=== PATIENT | male | born 1945 | race African-American/Black ===

== ENCOUNTER 2020-08-06 16:54 | Emergency (ER) | payer MEDICARE, OTHER ==
[~2020-08-06] VITALS: Ht 182.9 cm; Wt 76.8 kg
--- NOTE | 2020-08-06 17:16 | PHYS DOC ---
Past History Past Medical History: Diabetes, Hypertension, Renal Disease, Other Additional Past Medical Histor: osteomyelitis,osteosarcoma (PAUL JACOB FINAL ASSEMBLER) Alcohol Use: None (PAUL JACOB APRN) Adult General Chief Complaint Chief Complaint: WEAKNESS/GENERALIZED HPI HPI Patient is a 75-year-old male who presents to the emergency department today via EMS with chief complaints "I am feeling bad ". Patient also states that his right lower leg is hurting more than normal. EMS reports that patient was sent by his daughter and his home health nurse who feel that he has some altered mental status specifically "he acts like he just woke up from sleep ". Patient is unable to stand and ambulate normally. Patient states that he feels dizzy when he is in the standing position. Patient's daughter reports that he has a history of type 2 diabetes, hypertension, hypercholesterol, glaucoma, renal arterial stents with renal disease, chronic osteomyelitis of the right tib-fib where he is treated with daily doxycycline p.o. twice daily 100 mg. Patient and patient's daughter denies the patient having any allergies to medications. Patient denies chest pain, denies shortness of breath, denies abdominal pains, denies nausea, vomiting, or diarrhea constipation or blood in his stools. Patient denies swelling of his extremities, denies skin rashes, denies vision changes, denies chest congestion, denies nasal congestion. Patient denies recent fever, chills, cough. (PAUL JACOB APRN) Review of Systems Review of Systems 14 body systems of review of systems have been reviewed. See HPI for pertinent positives and negative responses, otherwise all other systems are negative, nonpertinent or noncontributory. (PAUL JACOB FINAL ASSEMBLER) Current Medications Current Medications Amlodipine 10 mg daily, vitamin C 500 mg daily, 81 mg aspirin daily, Cosopt PF 2-0.5% 1 drop each eye twice daily, Zilactin 0.005% 1 drop both eyes nightly, lisinopril 40 mg daily, Glucophage 500 mg 2 tablets twice daily, multivitamin capsule daily, Protonix 40 mg daily, [id number] 0.02-0.005% 1 drop left eye nightly, Ozempic 1 mg 0.5 mils weekly, thiamine 100 mg daily, doxycycline 100 mg twice daily, Jardiance 10 mg daily, Zetia 10 mg daily, folic acid 1000 mcg daily, Neurontin 600 mg 3 times daily, hydrochlorothiazide 12.5 mg daily, [place] 5-325 mg daily, (PAUL JACOB APRN) Allergies Allergies Allergies Coded Allergies Type Severity Reaction Last Updated Verified No Known Drug Allergies 08/06/20 No (PAUL JACOB APRN) Physical Exam Physical Exam Constitutional: Well developed, well nourished, no acute distress, non-toxic appearance. HENT: Normocephalic, atraumatic, bilateral external ears normal, oropharynx moist, no oral exudates, nose normal. Eyes: PERRLA, EOMI, conjunctiva normal, no discharge. Neck: Normal range of motion, no tenderness, supple, no stridor. Cardiovascular:Heart rate regular rhythm, no murmur, heart sounds S1-S2 auscultation Lungs & Thorax: Bilateral breath sounds clear to auscultation, diminished left upper lobe, no adventitious lung sounds appreciated. Abdomen: Bowel sounds normal, soft, no tenderness, no masses, no pulsatile masses. Skin: Warm, dry, no erythema, no rash. Open stage IV ulcer to right lower extremity anterior tib-fib, dressed from home by home health nurse, dressing removed revealed stage IV ulcer without infectious process noted, tibia bone exposed. Ulcer redressed. Back: No tenderness, no CVA tenderness. Extremities: No tenderness, no cyanosis, no clubbing, ROM intact, no edema. Stage IV ulcer to right lower extremity related to chronic osteomyelitis that was diagnosed in the year 1999, distal cap refill less than 2 seconds, 2+ posterior tibial/dorsalis pedis pulses. Neurologic: Alert and oriented X 3, normal motor function, normal sensory function, no focal deficits noted. Psychologic: Affect normal, judgement normal, mood normal. (PAUL JACOB APRN) Current Patient Data Vital Signs Vital Signs Date Time Temp Pulse Resp B/P (MAP) Pulse Ox O2 Delivery O2 Flow Rate FiO2 08/06/20 17:04 98.3 89 18 99/59 (72) 96 Room Air Lab Results Laboratory Tests Test 08/06/20 17:27 08/06/20 20:54 08/06/20 20:55 White Blood Count 24.1 x10^3/uL Red Blood Count 4.11 x10^6/uL Hemoglobin 11.7 g/dL Hematocrit 36.5 % Mean Corpuscular Volume 89 fL Mean Corpuscular Hemoglobin 28 pg Mean Corpuscular Hemoglobin Concent 32 g/dL Red Cell Distribution Width 15.0 % Platelet Count 257 x10^3/uL Neutrophils (%) (Auto) 40 % Lymphocytes (%) (Auto) 59 % Monocytes (%) (Auto) 1 % Eosinophils (%) (Auto) 0 % Basophils (%) (Auto) 0 % Neutrophils # (Auto) 9.6 x10^3uL Lymphocytes # (Auto) 14.1 x10^3/uL Monocytes # (Auto) 0.3 x10^3/uL Eosinophils # (Auto) 0.1 x10^3/uL Basophils # (Auto) 0.0 x10^3/uL Segmented Neutrophils % 44 % Lymphocytes % 43 % Atypical Lymphocytes % (Manual) 13 % Smudge Cells Present Platelet Estimate Adequate Sodium Level 140 mmol/L Potassium Level 3.5 mmol/L Chloride Level 102 mmol/L Carbon Dioxide Level 29 mmol/L Anion Gap 9 Blood Urea Nitrogen 21 mg/dL Creatinine 1.6 mg/dL Estimated GFR (Cockcroft-Gault) 51.2 BUN/Creatinine Ratio 13 Glucose Level 153 mg/dL Lactic Acid Level 2.3 mmol/L 1.8 mmol/L Calcium Level 9.2 mg/dL Phosphorus Level 4.6 mg/dL Magnesium Level 1.7 mg/dL Total Bilirubin 0.7 mg/dL Aspartate Amino Transf (AST/SGOT) 25 U/L Alanine Aminotransferase (ALT/SGPT) 16 U/L Alkaline Phosphatase 86 U/L Troponin I Quantitative < 0.017 ng/mL Total Protein 6.6 g/dL Albumin 2.6 g/dL Albumin/Globulin Ratio 0.7 Urine Collection Type Unknown Urine Color Yellow Urine Clarity Clear Urine pH 5.0 Urine Specific [place] 1.015 Urine Protein Neg Urine Glucose (UA) >=1000 mg/dL Urine Ketones (Stick) Neg mg/dL Urine Blood Neg Urine Nitrite Neg Urine Bilirubin Neg Urine Urobilinogen Dipstick 0.2 mg/dL Urine Leukocyte Esterase Neg Urine RBC 0 /HPF Urine WBC 0 /HPF Urine Squamous Epithelial Cells None /LPF Urine Bacteria 0 /HPF Current Medications Medications (Trade) Dose Ordered Sig/Emma Route PRN Reason Start Time Stop Time Status Last Admin Dose Admin Sodium Chloride 500 ml @ 0 mls/hr 1X ONCE IV 08/06/20 17:30 08/06/20 17:31 DC 08/06/20 18:34 Ciprofloxacin Lactate 200 ml @ 200 mls/hr 1X ONCE IV 08/06/20 21:30 08/06/20 22:29 DC (PAUL JACOB APRN) EKG EKG EKG performed at 1745 by house respiratory therapy staff, shows a normal sinus rhythm without ectopy heart rate 85 bpm, MT interval 0.152, QTc interval 0.417, no acute STEMI, no ACS, no acute ischemia appreciated, EKG interpreted by ED attending physician Dr. Nolasco. (PAUL JACOB APRN) Radiology/Procedures Radiology/Procedures []SEX: MEXAM ACCESSION#: [id number] STATUS: REG ER ORD. PHYSICIAN: PAUL JACOB APRN REASON: ALTERED MENTAL STATUS, weakness PROCEDURE: CT HEAD WO CONTRAST CT head without contrast dated 08/06/2020. No comparison available. Clinical data indication: Altered mental status. TECHNIQUE: Contiguous axial imaging the head was performed from skull base to vertex. No contrast administered. One or more of the following individualized dose reduction techniques were utilized for this examination: 1. Automated exposure control 2. Adjustment of the mA and/or kV according to patient size 3. Use of iterative reconstruction technique. FINDINGS: Ventricles and sulci are mildly prominent for age. No midline shift or mass effect. Moderate patchy low density in the deep/subcortical periventricular white matter. No hemorrhage or extra-axial collection. Posterior fossa and brainstem unremarkable. There are remote lacunar infarcts of the right basal ganglia and left thalamus. Visualized paranasal sinuses and mastoid air cells are clear. No apparent calvarial abnormality. IMPRESSION: 1. No evidence of acute intracranial hemorrhage or mass. 2. Moderate chronic small vessel ischemic changes and atrophy. Electronically signed by: Paul Leon MD (08/06/2020 10:00 PM) [id number] DICTATED AND SIGNED BY: PAUL LEON MD DATE: 08/06/202158 CC: PAUL JACOB APRN; EMERGENCY,DEPARTMENT; ABY RAIN MD ~MTH0 0 SEX: M EXAM STATUS: REG ER ORD. PHYSICIAN: PAUL JACOB APRN REASON: LUNG MASS LEFT, weakness, short of air PROCEDURE: CT CHEST WO CONTRAST CT chest without contrast dated 08/06/2020. Comparison made to chest x-ray dated same day. Clinical data indication: Left lung mass. TECHNIQUE: Contiguous axial imaging the chest performed without the administration of intravenous contrast. One or more of the following individualized dose reduction techniques were utilized for this examination: 1. Automated exposure control 2. Adjustment of the mA and/or kV according to patient size 3. Use of iterative reconstruction technique FINDINGS: Again noted is a large soft tissue mass involving the suprahilar left upper lobe. This measures 4.2 x 7.9 x 6.8 cm. There is high-grade narrowing or occlusion of the anterior segment left upper lobe airway and apical posterior segmental airways. There is some soft tissue fullness at the left hilum suggesting adenopathy. There is also some soft tissue fullness at the right hilum which could be related to enlarged lymph node, however this is not well evaluated in the absence of contrast material. Nonpathologic enlarged right paratracheal and left paratracheal lymph nodes. The central airways are otherwise patent. Noncalcified subpleural nodule in the left upper lobe laterally on image 50 measures about 3 mm. Mild emphysema. There is a vague groundglass nodular density in the right lower lobe anteriorly on image 51 that measures about 1.2 cm, indeterminate, with some central cavitatio n. No pleural effusion. No pneumothorax. The heart size is within normal limits. No pericardial effusion. Extensive coronary calcifications. Thyroid gland is unremarkable. There are borderline enlarged bilateral axillary lymph nodes, nonspecific. There are also mildly enlarged supraclavicular lymph nodes on the left. Images of the upper abdomen are unremarkable. Small supraumbilical ventral hernia containing only fat. No acute bony abnormality. Multilevel spondylosis. IMPRESSION: 1. Large soft tissue mass at the suprahilar left upper lobe, most consistent with primary bronchogenic malignancy. There is resultant high-grade narrowing or occlusion of the left upper lobe airways. 2. Mild mediastinal, bilateral hilar and left supraclavicular lymphadenopathy, nonspecific. This could be reactive or neoplastic. PET CT could better evaluate. 3. There is a small noncalcified pulmonary nodule in the left upper lobe, nonspecific. There is also a vague groundglass opacity in the right lower lobe. Follow-up imaging to ensure stability/resolution. 4. Extensive coronary artery calcifications. 5. Small supraumbilical ventral hernia containing only fat. Electronically signed by: Paul Leon MD (08/06/2020 10:07 PM) [id number] DICTATED AND SIGNED BY: PAUL LEON MD DATE: 08/06/202200 CC: PAUL JACOB APRN; EMERGENCY,DEPARTMENT; ABY RAIN MD ~MTH0 0 SEX: M EXAM STATUS: REG ER ORD. PHYSICIAN: PAUL JACOB APRN REASON: WEAKNESS PROCEDURE: PORTABLE CHEST 1V INDICATION: Reason: WEAKNESS / Spl. Instructions: / History: COMPARISON: None. FINDINGS: Single view of chest obtained. Large masslike structure within the left upper hilar region measuring appr oximately 7-8 cm. There is some fullness in the right paratracheal stripe. Degenerative changes the spine. IMPRESSION: * Large masslike structure in the left perihilar and hilar region. This could be secondary to causes such as lung neoplasm although a portion of this could also be secondary to a region of consolidation from atelectasis or infiltrate. CT of the chest with contrast could BE obtained to further evaluate. Report called to the ER at 6:03 PM on date of exam Electronically signed by: Tushar Nuñez MD (08/06/2020 6:06 PM) [id number] DICTATED AND SIGNED BY: TUSHAR NUÑEZ MD DATE: 08/06/201800 CC: PAUL JACOB APRN; EMERGENCY,DEPARTMENT; ABY RAIN MD ~MTH0 0 (PAUL JACOB APRN) Heart Score Risk Factors: Risk Factors: DM, Current or recent (<one month) smoker, HTN, HLP, family history of CAD, obesity. Risk Scores: Risk Factors: DM, Current or recent (<one month) smoker, HTN, HLP, family history of CAD, obesity. (PAUL JACOB APRN) Course & Med Decision Making Course & Med Decision Making Pertinent Labs and Imaging studies reviewed. (See chart for details) 75-year-old male presents emergency department complaining that he feels bad, vital signs reviewed, physical examination revealed stage IV pressure ulcer, patient states he is followed closely by wound care/infectious disease. Related to patient's chief complaint, and ED work-up was initiated. EKG, troponin I, CBC, CMP, magnesium, phosphorus, lactic acid. Chest x-ray, related to patient's slight hypotension of 99/55 initially when arrived to ER, a 500 cc normal saline bolus was initiated, patient has not been to this facility in the past, patient states he has "some sort of renal disease ". EKG, troponin I negative for cardiac dyscrasias, chest x-ray revealed a mass in the left upper lung, patient's white count elevated 24,100 leukocytosis with neutrophilia, patient's creatinine 1.6, patient's lactic acid 2.3. After patient's 500 cc normal saline bolus, orthostatics were performed by ED nursing staff, patient's blood pressure and pulse did not reveal orthostasis however patient did complain of dizziness when he came to a standing position. Related to patient's chest x-ray, leukocytosis, altered mental status, CT head and chest without contrast was ordered. Discussed findings with patient and recommended patient be admitted to hospital, patient states that if he was to be admitted he would want to go to [facility] as this has been has hospital for the last 11 years and is closely followed by several physicians in that hospital. Contacted [facility] transfer center and discussed patient case with transferring physician Dr. Cassidy who agreed to take patient under transfer with the information discussed with him, however related to patient's CT chest, Dr. Cassidy recommended that the patient be transferred to [facility] for higher level of care. Discussed this with patient who was amenable to transfer to [facility]. ED nurse to [facility] floor nurse report given, patient transferred to [facility] via EMS. (PAUL JACOB APRN) Dragon Disclaimer Dragon Disclaimer This electronic medical record was generated, in whole or in part, using a voice recognition dictation system. (PAUL JACOB APRN) Departure Departure: Impression: Primary Impression: Lung mass Additional Impressions: Leukocytosis Elevated lactic acid level Chronic osteomyelitis Stage IV decubitus ulcer Altered mental status Disposition: 02 DC/TRF OTHER SHORT TERM HOS (Transfer to [facility], accepting transfer physician Dr. Cassidy) Condition: STABLE Dragon Disclaimer This chart was dictated in whole or in part using Voice Recognition software in a busy, high-work load, and often noisy Emergency Department environment. It may contain unintended and wholly unrecognized errors or omissions. (NAEL NOLASCO MD) Attending Signature Attending Signature I have participated in the care of this patient and I have reviewed and agree with all pertinent clinical information above including history, exam, and recommendations. (NAEL NOLASCO MD) Problem Qualifiers Additional Impressions: Leukocytosis Leukocytosis type: lymphocytosis Qualified Codes: D72.820 - Lymphocytosis (symptomatic) Stage IV decubitus ulcer Pressure injury location: other site Qualified Codes: L89.894 - Pressure ulcer of other site, stage 4 Altered mental status Altered mental status type: unspecified Qualified Codes: R41.82 - Altered mental status, unspecified PAUL JACOB APRN Aug 06, 2020 17:16 NAEL NOLASCO MD Aug 07, 2020 09:27
[2020-08-06] MEDS ORDERED: IV NORMAL SALINE 500ML 500 ML IV ONE (17:30)
[2020-08-06 17:51] LABS: BASO % 0 % (0-3); EOS # 0.1 x10^3/uL (0.0-0.7); EOS % 0 % (0-3); HEMATOCRIT 36.5 % (39.0-53.0); HEMOGLOBIN 11.7 g/dL (13.0-17.5); LYMPH # 14.1 x10^3/uL (1.0-4.8); LYMPH % 59 % (24-48); MEAN CORPUSCULAR HEMOGLOBIN 28 pg (25-35); MEAN CORPUSCULAR HGB CONC 32 g/dL (31-37); MEAN CORPUSCULAR VOLUME 89 fL (79-100); MONO # 0.3 x10^3/uL (0.0-1.1); MONO % 1 % (0-9); NEUT # 9.6 x10^3uL (1.8-7.7); NEUT % 40 % (31-73); PLATELET COUNT 257 x10^3/uL (140-400); RED BLOOD COUNT 4.11 x10^6/uL (4.30-5.70); WHITE BLOOD COUNT 24.1 x10^3/uL (4.0-11.0)
--- NOTE | 2020-08-06 18:08 | RAD ---
INDICATION: Reason: WEAKNESS / Spl. Instructions: / History: COMPARISON: None. FINDINGS: Single view of chest obtained. Large masslike structure within the left upper hilar region measuring approximately 7-8 cm. There is some fullness in the right paratracheal stripe. Degenerative changes the spine. IMPRESSION: * Large masslike structure in the left perihilar and hilar region. This could be secondary to causes such as lung neoplasm although a portion of this could also be secondary to a region of consolidatio n from atelectasis or infiltrate. CT of the chest with contrast could BE obtained to further evaluate . Report called to the ER at 6:03 PM on date of exam Electronically signed by: Leno Nuñez MD (08/06/2020 6:06 PM) [id number]
--- NOTE | 2020-08-06 18:11 | EKG ---
[address] [address] Test Date: 2020-08-06 Test Time: 17:45:28 Pat Name: DEBI LÓPEZ Department: Room: Gender: M Culinary Assistant: EDITH : 1945 Requested By: RADHA JACOB Order Number: [id number] Reading MD: Measurements Intervals May Rate: 85 P: 56 SD: 152 QRS: 31 QRSD: 84 T: 43 QT: 350 QTc: 417 Interpretive Statements SINUS RHYTHM OTHERWISE NORMAL ECG RI6.02 No previous ECG available for comparison
[2020-08-06 18:15] LABS: CALCIUM 9.2 mg/dL (8.5-10.1); CREATININE 1.6 mg/dL (0.7-1.3); GFR 51.2; POTASSIUM 3.5 mmol/L (3.5-5.1)
[2020-08-06 18:20] LABS: ALBUMIN 2.6 g/dL (3.4-5.0); ALBUMIN/GLOBULIN RATIO 0.7 (1.0-1.7); MAGNESIUM 1.7 mg/dL (1.8-2.4); PHOSPHORUS 4.6 mg/dL (2.6-4.7); TOTAL BILIRUBIN 0.7 mg/dL (0.2-1.0); TOTAL PROTEIN 6.6 g/dL (6.4-8.2)
[2020-08-06 18:27] LABS: % ATYL 13 % (0-0); % LYMPHS 43 % (24-48); % SEGS 44 % (35-66)
[2020-08-06 18:28] LABS: PLT ESTIMATE ADEQUATE (ADEQUATE); SMUDGE CELLS PRESENT
[2020-08-06] MEDS ORDERED: CIPROFLOXACIN 400MG PREMIX 200 ML IV ONE (21:30)
--- NOTE | 2020-08-06 22:03 | RAD ---
CT head without contrast dated 08/06/2020. No comparison available. Clinical data indication: Altered mental status. TECHNIQUE: Contiguous axial imaging the head was performed from skull base to vertex. No contrast administered. One or more of the following individualized dose reduction techniques were utilized for this examinat ion: 1. Automated exposure control 2. Adjustment of the mA and/or kV according to patient size 3. Use of iterative reconstruction technique. FINDINGS: Ventricles and sulci are mildly prominent for age. No midline shift or mass effect. Moderate patchy l ow density in the deep/subcortical periventricular white matter. No hemorrhage or extra-axial collect ion. Posterior fossa and brainstem unremarkable. There are remote lacunar infarcts of the right basal ganglia and left thalamus. Visualized paranasal sinuses and mastoid air cells are clear. No apparent calvarial abnormality. IMPRESSION: 1. No evidence of acute intracranial hemorrhage or mass. 2. Moderate chronic small vessel ischemic changes and atrophy. Electronically signed by: Paul Rodriguez MD (08/06/2020 10:00 PM) [id number]
--- NOTE | 2020-08-06 22:09 | RAD ---
CT chest without contrast dated 08/06/2020. Comparison made to chest x-ray dated same day. Clinical data indication: Left lung mass. TECHNIQUE: Contiguous axial imaging the chest performed without the administration of intravenous contrast. One or more of the following individualized dose reduction techniques were utilized for this examinat ion: 1. Automated exposure control 2. Adjustment of the mA and/or kV according to patient size 3. Use of iterative reconstruction technique FINDINGS: Again noted is a large soft tissue mass involving the suprahilar left upper lobe. This measures 4.2 x 7.9 x 6.8 cm. There is high-grade narrowing or occlusion of the anterior segment left upper lobe air way and apical posterior segmental airways. There is some soft tissue fullness at the left hilum sugg esting adenopathy. There is also some soft tissue fullness at the right hilum which could be related to enlarged lymph node, however this is not well evaluated in the absence of contrast material. Nonpa thologic enlarged right paratracheal and left paratracheal lymph nodes. The central airways are otherwise patent. Noncalcified subpleural nodule in the left upper lobe later ally on image 50 measures about 3 mm. Mild emphysema. There is a vague groundglass nodular density in the right lower lobe anteriorly on image 51 that measures about 1.2 cm, indeterminate, with some annie tral cavitation. No pleural effusion. No pneumothorax. The heart size is within normal limits. No pericardial effusion. Extensive coronary calcifications. T hyroid gland is unremarkable. There are borderline enlarged bilateral axillary lymph nodes, nonspecif ic. There are also mildly enlarged supraclavicular lymph nodes on the left. Images of the upper abdomen are unremarkable. Small supraumbilical ventral hernia containing only fat . No acute bony abnormality. Multilevel spondylosis. IMPRESSION: 1. Large soft tissue mass at the suprahilar left upper lobe, most consistent with primary bronchogeni c malignancy. There is resultant high-grade narrowing or occlusion of the left upper lobe airways. 2. Mild mediastinal, bilateral hilar and left supraclavicular lymphadenopathy, nonspecific. This coul d be reactive or neoplastic. PET CT could better evaluate. 3. There is a small noncalcified pulmonary nodule in the left upper lobe, nonspecific. There is also a vague groundglass opacity in the right lower lobe. Follow-up imaging to ensure stability/resolution . 4. Extensive coronary artery calcifications. 5. Small supraumbilical ventral hernia containing only fat. Electronically signed by: Paul Rodriguez MD (08/06/2020 10:07 PM) [id number]
[2020-08-06 22:21] LABS: BACTERIA,URINE 0 /HPF (0-FEW); BILIRUBIN,URINE NEG (NEG); CLARITY,URINE CLEAR; COLOR,URINE YELLOW; GLUCOSE,URINE >=1000 mg/dL (NEG); NITRITE,URINE NEG (NEG); RBC,URINE 0 /HPF (0-2); UROBILINOGEN,URINE 0.2 mg/dL (0.2 mg/dL); WBC,URINE 0 /HPF (0-4)
[2020-08-06 23:00] VITALS: BP 108/64
== END 2020-08-06 23:30 | disposition short-term general hospital (02) ==
LOC: ER 16:54
DX: M86.671 Other chronic osteomyelitis, right ankle and foot (principal); L89.514 Pressure ulcer of right ankle, stage 4; R91.8 Other nonspecific abnormal finding of lung field; D72.829 Elevated white blood cell count, unspecified; R41.82 Altered mental status, unspecified; R79.89 Other specified abnormal findings of blood chemistry; E11.9 Type 2 diabetes mellitus without complications; I10 Essential (primary) hypertension; N19 Unspecified kidney failure
CPT/HCPCS: 36415; 70450; 71045; 71250; 80053; 81001; 83605; 83735; 84100; 84484; 85007; 85025; 87040; 87205; 93005; 96361; 96365; 99285; J0744; J7040

== ENCOUNTER 2021-01-15 11:16 | Emergency (ER) | payer MEDICARE, OTHER ==
[~2021-01-15] VITALS: Ht 182.9 cm; Wt 76.8 kg
--- NOTE | 2021-01-15 12:04 | PHYS DOC ---
Past History Past Medical History: Diabetes, Hypertension, Renal Disease, Other Additional Past Medical Histor: osteomyelitis,osteosarcoma Alcohol Use: None Adult General Chief Complaint Chief Complaint: FLANK PAIN HPI HPI Patient is a 75-year-old presenting for generalized right flank pain. Has history of lung cancer with mets for which he sees [facility], he is currently undergoing some type of chemo and/or radiation treatment but is unsure exactly what he is on. Denies any previous right sided chest surgeries or abdominal surgeries. Reports he has had generalized right flank pain that is been there approximately 4 days without any inciting trauma, ingestion or exposure. States that it involves his chest wall and side. No fever, ripping or tearing sensation in chest, shortness of breath past baseline, dysuria or other urinary symptoms. Reports he does not think he is constipated Review of Systems Review of Systems Fourteen body systems of review of systems have been reviewed. See HPI for pertinent positives and negative responses, other [place] all other systems are negative, non-pertinent or non-contributory Allergies Allergies Allergies Coded Allergies Type Severity Reaction Last Updated Verified No Known Drug Allergies 08/06/20 No Physical Exam Physical Exam Constitutional: Well developed, well nourished, no acute distress, non-toxic appearance. HENT: Normocephalic, atraumatic, bilateral external ears normal, oropharynx moist, no oral exudates, nose normal. Eyes: PERRLA, EOMI, conjunctiva normal, no discharge. Neck: Normal range of motion, no tenderness, supple, no stridor. Cardiovascular: Heart rate regular, sinus rhythm, no murmurs rubs or gallops Lungs & Thorax: Decreased breath sounds to the left lower lobe, crackles present to right lower lobe, no respiratory distress Abdomen: Bowel sounds normal, soft, no tenderness, no guarding or rebound, no masses, no pulsatile masses. Nonsurgical abdomen, no peritoneal signs Skin: Warm, dry, no erythema, no rash. Back: No tenderness, no CVA tenderness. Extremities: No tenderness, no cyanosis, no clubbing, ROM intact, no edema. Neurologic: Alert and oriented X 3, grossly normal motor & sensory function, no focal deficits noted. Psychologic: Affect normal, judgement normal, mood normal. Current Patient Data Vital Signs Vital Signs Date Time Temp Pulse Resp B/P (MAP) Pulse Ox O2 Delivery O2 Flow Rate FiO2 01/15/21 11:30 98.8 94 22 124/73 98 Room Air Vital Signs Date Time Temp Pulse Resp B/P (MAP) Pulse Ox O2 Delivery O2 Flow Rate FiO2 01/15/21 15:46 98 18 147/89 (108) 98 Room Air 01/15/21 11:30 98.8 Lab Results Current Medications Medications (Trade) Dose Ordered Sig/Emma Route PRN Reason Start Time Stop Time Status Last Admin Dose Admin Fentanyl Citrate (Fentanyl 2ml Vial) 50 mcg 1X ONCE IVP 01/15/21 12:15 01/15/21 12:31 DC 01/15/21 12:54 Iohexol (Omnipaque 300 Mg/ml) 75 ml 1X ONCE IV 01/15/21 12:15 01/15/21 12:31 DC Potassium Chloride (Klor-Con) 40 meq 1X ONCE PO 01/15/21 14:00 01/15/21 14:01 DC 01/15/21 14:19 EKG EKG EKG ordered and interpreted by myself at 1231 hrs. as sinus rhythm at 71 bpm, unremarkable intervals, no axis deviation, no acute ischemic findings, no STEMI Radiology/Procedures Radiology/Procedures EXAMINATION: XR CHEST 1V CLINICAL HISTORY: Right flank pain EXAM DATE/TIME: 01/15/2021 1:20 PM COMPARISON: 08/06/2020 FINDINGS: Lines, Tubes, and Devices: None. Cardiomediastinal Silhouette: Heart size at upper limits of normal. Lungs and Pleura: Postsurgical changes in the left hemithorax with volume loss, related to partial pneumonectomy. No definite focal airspace consolidation or pleural effusion. Bones and Soft Tissues: Degenerative changes of the thoracic spine. IMPRESSION: No evidence of acute cardiopulmonary abnormality. Postoperative changes in the left hemithorax as described. Electronically signed by: Pipo Mendoza DO (01/15/2021 1:55 PM) [facility] //////////////////// CT chest abdomen pelvis with contrast dated 01/15/2021. Comparison made to 08/06/2020. CLINICAL INDICATION: Chest pain. TECHNIQUE: Contiguous axial imaging the chest abdomen pelvis performed following the intravenous administration of 75 cc Omnipaque 300. One or more of the following individualized dose reduction techniques were utilized for this examination: 1. Automated exposure control 2. Adjustment of the mA and/or kV according to patient size 3. Use of iterative reconstruction technique FINDINGS: There has been interval left upper lobectomy with resection of previously described left upper lobe mass. There is a suture line along the upper left mediastinum. A low-density nodular focus adjacent to the suture line measures about 3 cm maximum dimension with Hounsfield value of 18. There are couple of borderline enlarged left paratracheal lymph nodes measuring 9 to 10 mm short axis, similar to prior study. There is some pleural thickening at the left apex with mildly enlarged left axillary, left supraclavicular and upper left mediastinal lymph nodes, similar to prior study. Small left pleural effusion. Heart size is upper limits of normal. Coronary artery calcifications. Mildly enlarged right paratracheal and right axillary lymph nodes are unchanged. No definite right hilar adenopathy. There is some soft tissue thickening of the left hilum. Central airways are patent. Lungs are otherwise clear. No parenchymal nodule or mass. There is mild emphysema. Liver is homogeneous. No focal hepatic mass. Spleen is mildly enlarged. Small nodular focus of enhancement in the central spleen measures about 1.3 cm (image 14), indeterminate. Pancreas, adrenal glands and kidneys are unremarkable. Layering hyperdensity in the gallbladder suggesting sludge. No shadowing stone. Unopacified GI tract normal in caliber and contour. No bowel wall thickening. No inflammatory stranding in the mesentery. Appendix normal in caliber. There are mildly enlarged lymph nodes in the retroperitoneum. Pericaval lymph nodes on image 60 measures 1.5 cm short axis. Common iliac lymph node on the left on image 86 measures 10 mm short axis. There is a stent within the right external iliac vein. Atherosclerotic calcifications of the abdominal aorta without evidence of aneurysm. Images of pelvis show moderately enlarged prostate gland. Mild diffuse wall thickening of the urinary bladder. There are enlarged inguinal and iliac chain lymph nodes on the right. A right external iliac chain lymph node measures up to 2 cm short axis. A right inguinal lymph node measures up to 2.1 cm short axis. Small bilateral inguinal hernia containing only fat. There is also a prominent supraumbilical ventral hernia containing only fat. Bone windows show radiolucent focus within the T9 vertebral body, possibly Schmorl's node, unchanged. No additional lytic lesion. Multilevel spondylosis. IMPRESSION: 1. Interval left upper lobectomy with resection of large left upper lobe mass. There is a low-density nodular lesion along the suture line which may be pleural or mediastinal and location, indeterminate. This could represent a postoperative seroma or necrotic lymph node. Follow-up imaging to ensure stability. 2. Mediastinal and bilateral axillary and supra clavicular lymphadenopathy, similar to prior study, nonspecific. Metastatic lymph node spread not excluded. 3. There is also adenopathy in the retroperitoneum, right inguinal region and right iliac chain, indeterminate. This could represent metastatic disease or lymphoma. Correlate clinically. 4. Small left pleural effusion, new from prior study. 5. Mild emphysema. 6. Indeterminate small nodular focus of hyperenhancement within the spleen. 7. Prostatomegaly. Electronically signed by: Paul Rodriguez MD (01/15/2021 2:20 PM) [id number] Heart Score C/O Chest Pain: No HEART Score for Chest Pain: HEART Score for Chest Pain Response (Comments) Value History Slighlty/Non-Suspicious 0 ECG Normal 0 Age > 65 2 Risk Factors >3 Risk Factors or Hx CAD 2 Troponin < Normal Limit 0 Total 4 Risk Factors: Risk Factors: DM, Current or recent (<one month) smoker, HTN, HLP, family history of CAD, obesity. Risk Scores: Risk Factors: DM, Current or recent (<one month) smoker, HTN, HLP, family history of CAD, obesity. Course & Med Decision Making Course & Med Decision Making ABCs unremarkable. I disclosed entirety of ER findings and discussed most likely diagnosis of right-sided torso pain of unknown etiology. I disclosed entirety of visit and no obvious emergent or surgical findings. Patient did report symptomatic improvement with administered IV pain medication. I disclose little indication for further intervention and/or work-up or need for hospital transfer and admission for which patient was agreeable. Joint decision made to discharge with close outpatient follow-up to review ER visit today. Strict return precautions were also discussed at length with good understanding by patient. Patient voiced understanding and agreement with the plan. Patient knows to come back for repeat evaluation if concerning signs or symptoms present prior to outpatient follow-up. Hemodynamically stable, ambulatory and well-appearing at time of disposition. Dragon Disclaimer Dragon Disclaimer This electronic medical record was generated, in whole or in part, using a voice recognition dictation system. Departure Departure: Impression: Primary Impression: Right flank pain Disposition: HOME / SELF CARE / HOMELESS Condition: STABLE Referrals: ABY RAIN MD (PCP) Patient Instructions: Abdominal Pain (Nonspecific) Additional Instructions: You have been evaluated in the Emergency Department today for right-sided flank/abdominal pain. Your evaluation was not suggestive of any emergent condition requiring medical intervention at this time. However, some abdominal problems make take more time to appear. Therefore, it is important for you to watch for any new symptoms or worsening of your current condition. As disclosed, it is pertinent you contact your primary care physician next scheduled business day to review ER visit today and need for close outpatient follow-up for repeat evaluation. If any concerning signs or symptoms present prior to outpatient follow-up please do not hesitate to come back for repeat evaluation Return to the Emergency Department if you experience worsening pain, persistent fevers greater than 100.4, recurrent vomiting, blood in vomit, blood in stool, dark tarry stool, chest pain, difficulty breathing, or any other concerning symptoms. FEDERICO AJ DO Jan 15, 2021 12:04
[2021-01-15] MEDS ORDERED: IOHEXOL 300 MG/ML 75 ML VIAL. IV ONE (12:15)
[2021-01-15 12:50] LABS: BASO % 0 % (0-3); EOS % 0 % (0-3); HEMATOCRIT 28.3 % (39.0-53.0); HEMOGLOBIN 9.2 g/dL (13.0-17.5); LYMPH # 10.9 x10^3/uL (1.0-4.8); LYMPH % 98 % (24-48); MEAN CORPUSCULAR HEMOGLOBIN 29 pg (25-35); MEAN CORPUSCULAR HGB CONC 33 g/dL (31-37); MEAN CORPUSCULAR VOLUME 90 fL (79-100); MONO % 0 % (0-9); NEUT # 0.1 x10^3uL (1.8-7.7); NEUT % 1 % (31-73); PLATELET COUNT 96 x10^3/uL (140-400); RED BLOOD COUNT 3.14 x10^6/uL (4.30-5.70); RED CELL DISTRIBUTION WIDTH 19.4 % (11.5-14.5); WHITE BLOOD COUNT 11.1 x10^3/uL (4.0-11.0)
[2021-01-15 12:58] LABS: CALCIUM 8.5 mg/dL (8.5-10.1); CREATININE 1.4 mg/dL (0.7-1.3); GFR 59.8; POTASSIUM 3.1 mmol/L (3.5-5.1)
[2021-01-15 13:11] LABS: ALBUMIN 2.5 g/dL (3.4-5.0); ALBUMIN/GLOBULIN RATIO 0.6 (1.0-1.7); TOTAL BILIRUBIN 0.4 mg/dL (0.2-1.0); TOTAL PROTEIN 6.4 g/dL (6.4-8.2)
[2021-01-15 13:47] LABS: % ATYL 18 % (0-0); % LYMPHS 82 % (24-48)
[2021-01-15 13:48] LABS: SMUDGE CELLS PRESENT
[2021-01-15 13:49] LABS: OVALOCYTES PRESENT; PLT ESTIMATE DECREASED (ADEQUATE)
--- NOTE | 2021-01-15 13:57 | RAD ---
EXAMINATION: XR CHEST 1V CLINICAL HISTORY: Right flank pain EXAM DATE/TIME: 01/15/2021 1:20 PM COMPARISON: 08/06/2020 FINDINGS: Lines, Tubes, and Devices: None. Cardiomediastinal Silhouette: Heart size at upper limits of normal. Lungs and Pleura: Postsurgical changes in the left hemithorax with volume loss, related to partial pn eumonectomy. No definite focal airspace consolidation or pleural effusion. Bones and Soft Tissues: Degenerative changes of the thoracic spine. IMPRESSION: No evidence of acute cardiopulmonary abnormality. Postoperative changes in the left hemithorax as described. Electronically signed by: Pipo Mendoza DO (01/15/2021 1:55 PM) D[facility]GL[facility]
[2021-01-15] MEDS ORDERED: POTASSIUM CHLORIDE 20 MEQ TABLET.ER. PO ONE (14:00)
--- NOTE | 2021-01-15 14:23 | RAD ---
CT chest abdomen pelvis with contrast dated 01/15/2021. Comparison made to 08/06/2020. CLINICAL INDICATION: Chest pain. TECHNIQUE: Contiguous axial imaging the chest abdomen pelvis performed following the intravenous administration of 75 cc Omnipaque 300. One or more of the following individualized dose reduction techniques were utilized for this examinat ion: 1. Automated exposure control 2. Adjustment of the mA and/or kV according to patient size 3. Use of iterative reconstruction technique FINDINGS: There has been interval left upper lobectomy with resection of previously described left upper lobe m ass. There is a suture line along the upper left mediastinum. A low-density nodular focus adjacent to the suture line measures about 3 cm maximum dimension with Hounsfield value of 18. There are couple of borderline enlarged left paratracheal lymph nodes measuring 9 to 10 mm short axis, similar to prio r study. There is some pleural thickening at the left apex with mildly enlarged left axillary, left s upraclavicular and upper left mediastinal lymph nodes, similar to prior study. Small left pleural eff usion. Heart size is upper limits of normal. Coronary artery calcifications. Mildly enlarged right paratrach eal and right axillary lymph nodes are unchanged. No definite right hilar adenopathy. There is some s oft tissue thickening of the left hilum. Central airways are patent. Lungs are otherwise clear. No parenchymal nodule or mass. There is mild e mphysema. Liver is homogeneous. No focal hepatic mass. Spleen is mildly enlarged. Small nodular focus of enhanc ement in the central spleen measures about 1.3 cm (image 14), indeterminate. Pancreas, adrenal glands and kidneys are unremarkable. Layering hyperdensity in the gallbladder suggesting sludge. No shadowi ng stone. Unopacified GI tract normal in caliber and contour. No bowel wall thickening. No inflammatory strandi ng in the mesentery. Appendix normal in caliber. There are mildly enlarged lymph nodes in the retroperitoneum. Pericaval lymph nodes on image 60 measu res 1.5 cm short axis. Common iliac lymph node on the left on image 86 measures 10 mm short axis. The re is a stent within the right external iliac vein. Atherosclerotic calcifications of the abdominal a brody without evidence of aneurysm. Images of pelvis show moderately enlarged prostate gland. Mild diffuse wall thickening of the urinary bladder. There are enlarged inguinal and iliac chain lymph nodes on the right. A right external holland c chain lymph node measures up to 2 cm short axis. A right inguinal lymph node measures up to 2.1 cm short axis. Small bilateral inguinal hernia containing only fat. There is also a prominent supraumbil ical ventral hernia containing only fat. Bone windows show radiolucent focus within the T9 vertebral body, possibly Schmorl's node, unchanged. No additional lytic lesion. Multilevel spondylosis. IMPRESSION: 1. Interval left upper lobectomy with resection of large left upper lobe mass. There is a low-density nodular lesion along the suture line which may be pleural or mediastinal and location, indeterminate . This could represent a postoperative seroma or necrotic lymph node. Follow-up imaging to ensure sta bility. 2. Mediastinal and bilateral axillary and supra clavicular lymphadenopathy, similar to prior study, n onspecific. Metastatic lymph node spread not excluded. 3. There is also adenopathy in the retroperitoneum, right inguinal region and right iliac chain, inde terminate. This could represent metastatic disease or lymphoma. Correlate clinically. 4. Small left pleural effusion, new from prior study. 5. Mild emphysema. 6. Indeterminate small nodular focus of hyperenhancement within the spleen. 7. Prostatomegaly. Electronically signed by: Paul Rodriguez MD (01/15/2021 2:20 PM) [id number]
[2021-01-15 14:55] LABS: BILIRUBIN,URINE NEG (NEG); CLARITY,URINE CLEAR; COLOR,URINE YELLOW; GLUCOSE,URINE NEG (NEG)
[2021-01-15 14:56] LABS: AMORPHOUS SEDIMENT,UR PRESENT /HPF; BACTERIA,URINE FEW /HPF (0-FEW); HYALINE CASTS, URINE OCC /HPF; NITRITE,URINE NEG (NEG); RBC,URINE 0 /HPF (0-2); SQUAMOUS EPITHELIAL CELL,UR FEW /LPF; WBC,URINE 0 /HPF (0-4)
[2021-01-15 15:46] VITALS: BP 147/89
--- NOTE | 2021-01-16 06:29 | EKG ---
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
== END 2021-01-15 15:50 | disposition home or self-care (01) ==
LOC: ER 11:16
DX: R10.84 Generalized abdominal pain (principal); R59.0 Localized enlarged lymph nodes; E11.9 Type 2 diabetes mellitus without complications; I10 Essential (primary) hypertension; Z85.118 Personal history of other malignant neoplasm of bronchus and lung
CPT/HCPCS: 36415; 71045; 71260; 74177; 80053; 81001; 83880; 84484; 85007; 85025; 93005; 96374; 99285; J3010

== ENCOUNTER 2021-02-22 16:22 | Inpatient (IN) | payer MEDICARE, OTHER ==
[~2021-02-22] VITALS: Ht 182.9 cm; Wt 69.4 kg
--- NOTE | 2021-02-22 17:05 | EKG ---
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
--- NOTE | 2021-02-22 17:41 | RAD ---
Exam: Chest 2 views INDICATION: Cough TECHNIQUE: Frontal and lateral views the chest Comparisons: 01/15/2021 FINDINGS: The cardiomediastinal silhouette and pulmonary vessels are within normal limits. Persistent left suprahilar opacity. Lungs are otherwise clear. IMPRESSION: No acute pulmonary process. Electronically signed by: Agus Carvajal MD (02/22/2021 5:39 PM) MARINA
[2021-02-22 17:48] LABS: BASO % 0 % (0-3); EOS % 1 % (0-3); LYMPH # 4.5 x10^3/uL (1.0-4.8); LYMPH % 95 % (24-48); MEAN CORPUSCULAR HEMOGLOBIN 33 pg (25-35); MEAN CORPUSCULAR HGB CONC 33 g/dL (31-37); MEAN CORPUSCULAR VOLUME 98 fL (79-100); MONO % 0 % (0-9); NEUT # 0.2 x10^3uL (1.8-7.7); NEUT % 4 % (31-73); PLATELET COUNT 55 x10^3/uL (140-400); RED BLOOD COUNT 1.97 x10^6/uL (4.30-5.70); RED CELL DISTRIBUTION WIDTH 20.2 % (11.5-14.5); WHITE BLOOD COUNT 4.8 x10^3/uL (4.0-11.0)
[2021-02-22 17:51] LABS: HEMATOCRIT 19.4 % (39.0-53.0); HEMOGLOBIN 6.5 g/dL (13.0-17.5)
--- NOTE | 2021-02-22 17:59 | PHYS DOC ---
Past History Past Medical History: Diabetes, Hypertension, Renal Disease, Other Additional Past Medical Histor: osteomyelitis,osteosarcoma, AFIB, STAGE 3 LUNG CA, CLL (ALFREDO CARO MD) Past Surgical History: Other Additional Past Surgical Histo: Left lobectomy (ALFREDO CARO MD) Alcohol Use: None (ALFREDO CARO MD) General Adult EDM: Chief Complaint: MULTIPLE COMPLAINTS HPI: HPI: Patient is a 75-year-old male brought in by daughter for fatigue, worsening chronic osteomyelitis of right lower leg, and concern his lungs are "wet" per home health nurse. Patient has been coughing which is productive of frothy sputum. History was provided by daughter. Has a history of lung cancer status post lobectomy and 4 rounds of chemotherapy. No known metastasis of lung cancer. (ALFREDO CARO MD) Review of Systems: Review of Systems: All other systems within normal limits except for as noted in the HPI (ALFREDO CARO MD) Allergies: Allergies: Allergies Coded Allergies Type Severity Reaction Last Updated Verified No Known Drug Allergies 08/06/20 No (ALFREDO CARO MD) Physical Exam: PE: Constitutional: Well developed, well nourished, no acute distress, non-toxic appearance. [] HENT: Normocephalic, atraumatic, bilateral external ears normal, nose normal. [] Eyes: PERRLA, conjunctiva normal, no discharge. [] Neck: No rigidity, supple, no stridor. [] Cardiovascular: Regular rate and rhythm, brisk cap refill [] Lungs & Thorax: Non labored symmetric respirations, no tachypnea or respiratory distress [] Abdomen: Soft, nondistended. Skin: Warm, dry, no erythema, no rash. [Darkening of skin to right lower leg] Back: Unremarkable Extremities: No deformities, range of motion grossly intact, no lower extremity edema [] Neurologic: Alert and oriented X 3, no focal deficits noted. [] Psychologic: Affect normal, judgement normal, mood normal. [] (ALFREDO CARO MD) Current Patient Data: Labs: Laboratory Tests Test 02/22/21 17:10 White Blood Count 4.8 x10^3/uL (4.0-11.0) Red Blood Count 1.97 x10^6/uL (4.30-5.70) L Hemoglobin 6.5 g/dL (13.0-17.5) *L Hematocrit 19.4 % (39.0-53.0) *L Mean Corpuscular Volume 98 fL (79-100) Mean Corpuscular Hemoglobin 33 pg (25-35) Mean Corpuscular Hemoglobin Concent 33 g/dL (31-37) Red Cell Distribution Width 20.2 % (11.5-14.5) H Platelet Count 55 x10^3/uL (140-400) L Neutrophils (%) (Auto) 4 % (31-73) L Lymphocytes (%) (Auto) 95 % (24-48) H Monocytes (%) (Auto) 0 % (0-9) Eosinophils (%) (Auto) 1 % (0-3) Basophils (%) (Auto) 0 % (0-3) Neutrophils # (Auto) 0.2 x10^3uL (1.8-7.7) L Lymphocytes # (Auto) 4.5 x10^3/uL (1.0-4.8) Monocytes # (Auto) 0.0 x10^3/uL (0.0-1.1) Eosinophils # (Auto) 0.0 x10^3/uL (0.0-0.7) Basophils # (Auto) 0.0 x10^3/uL (0.0-0.2) Platelet Estimate Pending Erythrocyte Sedimentation Rate Pending Vital Signs: Vital Signs Date Time Temp Pulse Resp B/P (MAP) Pulse Ox O2 Delivery O2 Flow Rate FiO2 02/22/21 16:25 98.5 80 28 146/66 98 Room Air (ALRFEDO CARO MD) EKG: EKG: Sinus rhythm, heart rate 74 bpm, normal axis, no ST elevation or depression. [] (ALFREDO CARO MD) Radiology/Procedures: Radiology/Procedures: [] (ALFREDO CARO MD) Impressions: XR RT TIBIA+FIBULA Clinical Indication: Reason: Right lower leg pain, hx of lung CA and chemo / Spl. Instructions: / History: Comparison: None. Findings: No acute fracture is identified. The mineralization is normal. There is a permeative appearance of the proximal to mid diaphysis of the tibia. There are 2 lucent lesions centrally measuring 4.5 and 5.9 cm in length. There is periosteal reaction. No soft tissue swelling is identified. No obvious abnormality the ankle or knee joints. IMPRESSION: 1. No acute fracture. 2. There is a permeative appearance of the proximal to mid diaphysis of the tibia. Given the history, metastatic disease should be excluded. No pathologic fracture is currently seen. Consider whole body bone scan. Electronically signed by: Dustin Zayas MD (02/22/2021 7:09 PM) [facility] DICTATED AND SIGNED BY: DUSTIN ZAYAS MD DATE: 02/22/21 190 CC: ALFREDO CARO MD; PATY URIARTE DO; ABY RAIN MD ~MTH0 0 Exam: Chest 2 views INDICATION: Cough TECHNIQUE: Frontal and lateral views the chest Comparisons: 01/15/2021 FINDINGS: The cardiomediastinal silhouette and pulmonary vessels are within normal limits. Persistent left suprahilar opacity. Lungs are otherwise clear. IMPRESSION: No acute pulmonary process. Electronically signed by: Agus Vega MD (02/22/2021 5:39 PM) [facility] DICTATED AND SIGNED BY: AGUS VEGA MD DATE: 02/22/21 1733 CC: ALFREDO CARO MD; ABY RAIN MD ~MTH0 0 (PATY URIARTE DO) Heart Score: C/O Chest Pain: No Risk Factors: Risk Factors: DM, Current or recent (<one month) smoker, HTN, HLP, family history of CAD, obesity. Risk Scores: Score 0 - 3: 2.5% MACE over next 6 weeks - Discharge Home Score 4 - 6: 20.3% MACE over next 6 weeks - Admit for Clinical Observation Score 7 - 10: 72.7% MACE over next 6 weeks - Early Invasive Strategies (ALFREDO CARO MD) Course & Med Decision Making: Course & Med Decision Making Pertinent Labs and Imaging studies reviewed. (See chart for details) [] (ALFREDO CARO MD) Course & Med Decision Making The patient's hemoglobin is 6.5. There are no acute findings on lower leg x- ray. There are what appear to be retained ratna. I have made the patient and his daughter aware of these. They did not know about any ratna being used for the several years. The patient does need transfusion. His baseline hemoglobin appears to be between nine and eleven based on our chart. The patient would [facility] to be [facility] to [facility] but they do not have any beds. They are in agreement with admission at this hospital. I spoke with Dr. Robert and he has accepted the patient for admission. They will transfuse blood up on the floor. (PATY URIARTE DO) Dragon Disclaimer: Dragon Disclaimer: This electronic medical record was generated, in whole or in part, using a voice recognition dictation system. (ALFREDO CARO MD) Departure Departure: Impression: Primary Impression: Anemia Additional Impression: Chronic osteomyelitis Disposition: ADMITTED INPATIENT Admitting Physician: Mitchel Robert (PATY URIARTE DO) Condition: STABLE Referrals: ABY RAIN MD (PCP) ALFREDO CARO MD Feb 22, 2021 17:59 PATY URIARTE DO Feb 22, 2021 19:55
[2021-02-22 18:01] LABS: CALCIUM 8.6 mg/dL (8.5-10.1); CREATININE 1.1 mg/dL (0.7-1.3); POTASSIUM 3.3 mmol/L (3.5-5.1)
[2021-02-22 18:06] LABS: ALBUMIN 2.5 g/dL (3.4-5.0); ALBUMIN/GLOBULIN RATIO 0.6 (1.0-1.7); C REACTIVE PROTEIN 75.8 mg/L (0-3.3); MAGNESIUM 1.3 mg/dL (1.8-2.4); TOTAL BILIRUBIN 0.5 mg/dL (0.2-1.0); TOTAL PROTEIN 6.5 g/dL (6.4-8.2)
[2021-02-22 19:07] LABS: % LYMPHS 96 % (24-48); % SEGS 4 % (35-66)
[2021-02-22 19:08] LABS: ANISOCYTOSIS MOD; PLT ESTIMATE DECREASED (ADEQUATE)
--- NOTE | 2021-02-22 19:12 | RAD ---
XR RT TIBIA+FIBULA Clinical Indication: Reason: Right lower leg pain, hx of lung CA and chemo / Spl. Instructions: / Hi story: Comparison: None. Findings: No acute fracture is identified. The mineralization is normal. There is a permeative appearance of th e proximal to mid diaphysis of the tibia. There are 2 lucent lesions centrally measuring 4.5 and 5.9 cm in length. There is periosteal reaction. No soft tissue swelling is identified. No obvious abnorma lity the ankle or knee joints. IMPRESSION: 1. No acute fracture. 2. There is a permeative appearance of the proximal to mid diaphysis of the tibia. Given the history , metastatic disease should be excluded. No pathologic fracture is currently seen. Consider whole bod y bone scan. Electronically signed by: Dustin Zayas MD (02/22/2021 7:09 PM) [facility]
[2021-02-22 19:32] LABS: SEDIMENTATION RATE 126 (0-15)
[2021-02-22] MEDS ORDERED: ACETAMINOPHEN 325 MG TABLET PO PRN (20:15)
[2021-02-22] MEDS ORDERED: ONDANSETRON PF 4 MG/2 ML VIAL. IVP PRN (20:15)
[2021-02-22 20:52] VITALS: BP 133/61
[2021-02-22 21:54] VITALS: BP 145/73
[2021-02-22 22:12] VITALS: BP 154/84
[2021-02-22 23:12] VITALS: BP 165/80
[2021-02-23] VITALS (7 sets, daily range): BP systolic 118–165; BP diastolic 63–96
[2021-02-23 06:24] LABS: BASO % 0 % (0-3); EOS % 1 % (0-3); HEMATOCRIT 23.2 % (39.0-53.0); HEMOGLOBIN 7.8 g/dL (13.0-17.5); LYMPH # 7.3 x10^3/uL (1.0-4.8); LYMPH % 96 % (24-48); MEAN CORPUSCULAR HEMOGLOBIN 32 pg (25-35); MEAN CORPUSCULAR HGB CONC 34 g/dL (31-37); MEAN CORPUSCULAR VOLUME 96 fL (79-100); MONO % 1 % (0-9); NEUT # 0.2 x10^3uL (1.8-7.7); NEUT % 3 % (31-73); PLATELET COUNT 54 x10^3/uL (140-400); RED BLOOD COUNT 2.42 x10^6/uL (4.30-5.70); RED CELL DISTRIBUTION WIDTH 19.1 % (11.5-14.5); WHITE BLOOD COUNT 7.6 x10^3/uL (4.0-11.0)
[2021-02-23 10:45] LABS: BACTERIA,URINE 0 /HPF (0-FEW); BILIRUBIN,URINE SMALL (NEG); CLARITY,URINE CLEAR; COLOR,URINE AMBER; GLUCOSE,URINE NEG (NEG); NITRITE,URINE NEG (NEG); RBC,URINE 0 /HPF (0-2); SQUAMOUS EPITHELIAL CELL,UR OCC /LPF; UROBILINOGEN,URINE >=8.0 mg/dL (0.2 mg/dL); WBC,URINE OCC /HPF (0-4)
[2021-02-23 12:59] LABS: % BANDS 2 % (0-9); % LYMPHS 93 % (24-48); % SEGS 5 % (35-66)
[2021-02-23 14:14] LABS: ANISOCYTOSIS PRESENT
[2021-02-23 14:15] LABS: MICROCYTOSIS PRESENT; OVALOCYTES PRESENT
[2021-02-23 14:17] LABS: BURR CELLS PRESENT; TEAR DROP CELLS PRESENT
[2021-02-23 14:18] LABS: PLT ESTIMATE DECREASED (ADEQUATE)
[2021-02-23] MEDS ORDERED: ONDA4TAB7 PO (14:23)
[2021-02-23] MEDS ORDERED: DEXA4TAB PO (14:23)
[2021-02-23] MEDS ORDERED: AMIO200T7 PO (14:23)
[2021-02-23] MEDS ORDERED: ALLO300T PO (14:23)
[2021-02-23] MEDS ORDERED: METO10TA PO (14:23)
[2021-02-23] MEDS ORDERED: AMLO-187 PO (14:23)
[2021-02-23] MEDS ORDERED: FOLI20CA PO (14:23)
[2021-02-23] MEDS ORDERED: APIX5TAB3 PO (14:23)
[2021-02-23] MEDS ORDERED: METF500T16 PO (14:23)
[2021-02-23] MEDS ORDERED: GABA800T PO (14:23)
[2021-02-23] MEDS ORDERED: DOXY-181 PO (14:23)
[2021-02-23] MEDS ORDERED: HYDR-2155 PO (14:23)
[2021-02-23] MEDS ORDERED: PROC10TA2 PO (14:23)
[2021-02-23] MEDS ORDERED: DORZ1DRO7 OU (15:25)
[2021-02-23] MEDS ORDERED: NETA2.5D3 OU (15:25)
[2021-02-23] MEDS ORDERED: EZET10TA20 PO (15:25)
[2021-02-23] MEDS ORDERED: LIPITOR80 MG PO (15:25)
[2021-02-23] MEDS ORDERED: EMPA10TA PO (15:25)
[2021-02-23] MEDS ORDERED: PANT40TA6 PO (15:25)
[2021-02-23] MEDS ORDERED: POTASSIUM CHLORIDE 20 MEQ TABLET.ER. PO ONE (16:15)
[2021-02-23] MEDS ORDERED: MAGNESIUM SULFATE 2GM 50 ML IV ONE (16:30)
[2021-02-23 16:42] LABS: HEMATOCRIT 22.9 % (39.0-53.0); HEMOGLOBIN 7.7 g/dL (13.0-17.5)
[2021-02-23 17:07] LABS: CALCIUM 8.5 mg/dL (8.5-10.1); CREATININE 1.1 mg/dL (0.7-1.3); MAGNESIUM 1.3 mg/dL (1.8-2.4); POTASSIUM 3.3 mmol/L (3.5-5.1)
[2021-02-23] MEDS: metFORMIN 500 MG TABLET PO SCH (17:14)
[2021-02-23] MEDS: METOCLOPRAMIDE 10 MG TABLET PO SCH (17:14)
[2021-02-23] MEDS: DEXAMETHASONE 4 MG TABLET PO SCH (17:14)
[2021-02-23] MEDS ORDERED: PROCHLORPERAZINE 5 MG TABLET. PO PRN (17:15)
--- NOTE | 2021-02-23 17:29 | HP ---
HISTORY OF PRESENT ILLNESS: The patient is a 75-year-old -[place] male patient who presented to the Emergency Room with multiple complaints. He was in fact brought by his daughter for fatigue, worsening chronic osteomyelitis of the right lower leg and concern for his lungs are wet per home health nurses and the patient has been coughing frothy sputum, has a history of lung cancer, status post lobectomy and 4 rounds of chemotherapy, no known metastatic lung cancer. He was evaluated in the Emergency Room and has had lab work, which showed that he was anemic with a hemoglobin of 6.5, hematocrit 19.4. His chemistry also showed that he was hypokalemic and hypomagnesemic and his prothrombin time, INR normal. Urinalysis was essentially unremarkable. His chest x-ray showed the patient has cardiomediastinal silhouette and pulmonary vessels are within normal limits. Persistent left suprahilar opacity. Lungs are otherwise clear. Has an x-ray of his right lower extremity, which showed that the patient has no acute fracture identified. The mineralization is normal. There is a permeative appearance of the proximal to mid diaphysis of the tibia. There are 2 lucent lesions centrally measuring 4.5 and 5.9 cm. There is periosteal reaction. No soft tissue swelling identified. No obvious abnormality of the ankle or knee joints. The impression is that there is no acute fracture; however, there is a permeative appearance of the proximal to mid diaphysis of the tibia. Given the history, metastatic disease should be excluded. No pathological fracture is currently seen. Consider whole body bone scan. The patient was admitted. We will type and cross and will transfuse him 1 unit of packed RBCs. We will resume all his medications and decide on further management accordingly. PAST MEDICAL HISTORY: Significant for type 2 diabetes mellitus, hypertension, hyperlipidemia. He was diagnosed with stage III lung cancer on 08/20/2020 and has received 4 rounds of chemotherapy in October, November, December and January. He received his last treatment at the end of January, according to his daughter. He is also known to have atrial fibrillation, rate controlled, on amiodarone. He is also on apixaban for stroke prevention. 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 He has also osteosarcoma, apparently diagnosed when he was living in [place]. He has apparently moved to live with his daughter only about 5 years ago. PAST SURGICAL HISTORY: Significant for left lower lobe lobectomy and glaucoma surgery. ALLERGIES: He has no known drug allergies. MEDICATIONS: He is currently on doxycycline monohydrate 100 mg twice a day, apixaban 5 mg twice a day, amiodarone 200 mg daily, Zetia 10 mg once a day, atorvastatin for Lipitor 80 mg daily, amlodipine besylate 10 mg daily, hydrocodone/APAP 5/325 one tablet every 4 hours, gabapentin 800 mg 3 times a day, dorzolamide and Timolol 2% one drop to both eyes twice a day. He is also on Rocklatan 1 drop to both eyes at bedtime, prochlorperazine 10 mg every 6 hours, Zofran 4 mg - he takes 2 tablets every 8 hours, Protonix 40 mg once a day, metoclopramide 10 mg twice a day with meal, dexamethasone 4 mg twice a day, metformin 500 mg twice a day, Jardiance 10 mg once a day, folic acid 20 mg capsule - 2 capsules p.o. daily and allopurinol 300 mg once a day. FAMILY HISTORY: Noncontributory. SOCIAL HISTORY: He lives with his daughter. He is an ex-smoker, quit 3 years ago. He used to drink heavily, quit about a year ago. 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 REVIEW OF SYSTEMS: As per history of present illness. PHYSICAL EXAMINATION: GENERAL: On arrival to the Emergency Room, the patient looked pale, but no jaundice, cyanosis or thyromegaly. No jugular venous distention. No lower limb edema. VITAL SIGNS: His heart rate was 75, blood pressure was 165/80, temperature was 99, respiratory rate 20, and oxygen saturation was 98% on room air. HEAD, EYES, EARS, NOSE, AND THROAT: Normocephalic, atraumatic. NECK: Supple. HEART: Showed normal first and second heart sounds. No gallop, rub or murmur. CHEST: Clear to auscultation. No crepitation or rhonchi. ABDOMEN: Distended, soft, nontender. NEUROLOGIC: He was slow to respond, but all his cranial nerves seem to be grossly intact. He moves extremities without difficulty, ambulates with a cane. He has a wound that is covered with dressing on the right lower extremity. LABORATORY DATA: His lab work on admission showed a white cell count 4800, hemoglobin 6.5, hematocrit 19.4, MCV 98 and platelet count 55,000 with a manual differential showed 95% lymphocytes and 4% neutrophils. His sedimentation rate was 126. His chemistry showed a serum sodium 139, potassium 3.3, chloride 102, bicarbonate 31, anion gap of 6, BUN 21, creatinine 1.1. Estimated GFR was 79 mL per minute. His glucose 155, lactic acid was 1.7, calcium was 8.6, magnesium was 1.3. Total bilirubin, AST, ALT, alkaline phosphatase were normal. His C-reactive protein was mg per liter. Beta natriuretic peptide was 643. Total protein 6.5, albumin was 2.5. His urinalysis showed the urine was juani, clear with a pH of 6.5, specific gravity of 1.020. The urine was negative for protein, glucose, trace ketones, negative for blood and nitrite. There was small amount of bilirubin, and the urine was negative for leukocyte esterase, no rbc's, no wbc's and no bacteria. The chest x-ray showed that the patient had cardiomediastinal silhouette and pulmonary vessels are within normal limits. Persistent left suprahilar opacity. Lungs are otherwise clear. X-ray of the tibia and fibula showed that there is no acute fracture; however, there is a permeative appearance of the proximal to mid diaphysis of the tibia, given the history, metastatic disease should be excluded. No pathological fracture is currently seen. Consider whole body bone scan. PLAN: The patient was admitted. We will reconcile all his medication. We will type and cross and transfuse 1 unit of packed RBCs. He has also hypokalemia and hypomagnesemia that we will replenish. AZAM/COBY DR: Paul TID: [id number]
[2021-02-23] MEDS ORDERED: PROCHLORPERAZINE 5 MG TABLET. PO SCH (18:00)
[2021-02-23] MEDS: ONDANSETRON ODT 4 MG TAB.RAPDIS PO SCH (20:25)
[2021-02-23] MEDS: DOXYCYCLINE HYCLATE 100 MG TABLET PO SCH (20:25)
[2021-02-23] MEDS: GABAPENTIN 400 MG CAPSULE. PO SCH (20:25)
[2021-02-23] MEDS: POTASSIUM CHLORIDE 20 MEQ TABLET.ER. PO SCH (20:25)
[2021-02-23] MEDS: MAGNESIUM OXIDE 400 MG TABLET PO SCH (20:25)
[2021-02-23] MEDS: APIXABAN 5 MG TABLET. PO SCH (20:26)
[2021-02-23] MEDS: [UNRECOGNIZED DRUG - OTHER] OU SCH (21:00)
[2021-02-23] MEDS: NETARSUDIL MESYLAT OU SCH (21:00)
[2021-02-23] MEDS: LATANOPROST OU SCH (21:00)
[2021-02-23] MEDS: DORZOLAMIDE/TIMOLOL 2%/0.5% OPHTH SOLUTION 10ML BOTTLE. OU SCH (21:00)
[2021-02-24] MEDS: ONDANSETRON ODT 4 MG TAB.RAPDIS PO SCH ×3 (05:39→20:55)
[2021-02-24 05:55] VITALS: BP 125/66
[2021-02-24 06:59] LABS: BASO % 0 % (0-3); EOS % 0 % (0-3); HEMOGLOBIN 7.5 g/dL (13.0-17.5); LYMPH # 5.6 x10^3/uL (1.0-4.8); LYMPH % 95 % (24-48); MEAN CORPUSCULAR HEMOGLOBIN 33 pg (25-35); MEAN CORPUSCULAR HGB CONC 34 g/dL (31-37); MEAN CORPUSCULAR VOLUME 96 fL (79-100); MONO % 0 % (0-9); NEUT # 0.3 x10^3uL (1.8-7.7); NEUT % 5 % (31-73); PLATELET COUNT 68 x10^3/uL (140-400); WHITE BLOOD COUNT 5.9 x10^3/uL (4.0-11.0)
[2021-02-24 07:11] LABS: ALBUMIN 2.4 g/dL (3.4-5.0); ALBUMIN/GLOBULIN RATIO 0.6 (1.0-1.7); CALCIUM 8.8 mg/dL (8.5-10.1); GFR 88.1; POTASSIUM 4.3 mmol/L (3.5-5.1); TOTAL BILIRUBIN 0.5 mg/dL (0.2-1.0); TOTAL PROTEIN 6.3 g/dL (6.4-8.2)
[2021-02-24] MEDS: EMPAGLIFLOZIN 10 MG TABLET. PO SCH (08:40)
[2021-02-24] MEDS: amLODIPine BESYLATE 10 MG TABLET PO SCH (08:40)
[2021-02-24] MEDS: ATORVASTATIN CALCIUM 20 MG TABLET PO SCH (08:40)
[2021-02-24] MEDS: PANTOPRAZOLE 40 MG TABLET. PO SCH (08:40)
[2021-02-24] MEDS: DOXYCYCLINE HYCLATE 100 MG TABLET PO SCH ×2 (08:40→20:54)
[2021-02-24] MEDS: GABAPENTIN 400 MG CAPSULE. PO SCH ×3 (08:40→20:54)
[2021-02-24] MEDS: FOLIC ACID 1 MG TABLET PO SCH (08:40)
[2021-02-24] MEDS: DORZOLAMIDE/TIMOLOL 2%/0.5% OPHTH SOLUTION 10ML BOTTLE. OU SCH ×2 (08:41→20:54)
[2021-02-24] MEDS: METOCLOPRAMIDE 10 MG TABLET PO SCH ×2 (08:41→17:10)
[2021-02-24] MEDS: AMIODARONE HCL 200 MG TABLET. PO SCH (08:41)
[2021-02-24] MEDS: DEXAMETHASONE 4 MG TABLET PO SCH ×2 (08:41→17:10)
[2021-02-24] MEDS: EZETIMIBE 10 MG TABLET PO SCH (08:41)
[2021-02-24] MEDS: APIXABAN 5 MG TABLET. PO SCH ×2 (08:41→20:54)
[2021-02-24] MEDS: POTASSIUM CHLORIDE 20 MEQ TABLET.ER. PO SCH ×3 (08:41→20:54)
[2021-02-24] MEDS: ALLOPURINOL 300 MG TABLET. PO SCH (08:42)
[2021-02-24] MEDS: MAGNESIUM OXIDE 400 MG TABLET PO SCH ×3 (08:42→20:54)
[2021-02-24] MEDS: metFORMIN 500 MG TABLET PO SCH ×2 (08:42→17:10)
[2021-02-24] MEDS ORDERED: AMIODARONE HCL 200 MG TABLET. PO SCH (09:00)
[2021-02-24 10:37] VITALS: BP 127/73
--- NOTE | 2021-02-24 12:05 | PN ---
DATE: 02/23/2021 SUBJECTIVE: The patient is resting, slightly propped up in bed, in no apparent distress. On questioning him, he denied any complaint. The nursing staff stated that the dressing was changed. He specifically denied any chest pain, shortness of breath, cough, phlegm or hemoptysis. PHYSICAL EXAMINATION: GENERAL: When I examined him this afternoon, he looked pale. Not jaundiced, cyanosed, no thyromegaly. No jugular venous distention. No limb edema. VITAL SIGNS: His heart rate was 64, blood pressure is 124/67, temperature was 98.6, respiratory rate was 18 and oxygen saturation was 99% on room air. HEAD, EYES, EARS, NOSE, AND THROAT: Normocephalic, atraumatic. NECK: Supple. HEART: Showed normal first and second heart sounds, no gallop, rub or murmur. CHEST: Clear to auscultation, no crepitation or rhonchi. ABDOMEN: Scaphoid, soft, nontender, no guarding or rigidity. No organomegaly. All hernial orifice intact. Bowel sounds normal. NEUROLOGIC: He is awake, alert, somewhat slow to respond and difficult sometimes to understand, but all his cranial nerves seem to be grossly intact. He moves extremities without difficulty. LABORATORY DATA: Lab work this morning showed his white cell count to be 7600, hemoglobin 7.8, hematocrit 23.2, MCV 96 and platelet count of 54,000. Chemistry was not repeated again, so I ordered stat hemoglobin and hematocrit, BMP and magnesium. ASSESSMENT: In summary, this is a 75-year-old male patient who was diagnosed with stage III lung cancer in August of this year. He received 4 rounds of chemotherapy on October, November, December and January. He has also history of chronic osteomyelitis and osteosarcoma treated when he was at [place]. Other medical problems include chronic obstructive pulmonary disease, type 2 diabetes mellitus, hypertension, atrial fibrillation and he has hypokalemia, hypomagnesemia, has also thrombocythemia. PLAN: My plan is to reconcile all his medication. We will repeat his labs and if his hemoglobin is 7 or less than 7, we will transfuse him another unit of blood. I will also start him on magnesium 2 grams IV and start him on oral magnesium supplement and potassium supplement. I will repeat all his lab work tomorrow and also consult physical and occupational therapy and talk to his oncologist as he has severe neutropenia and only 96% of the white cell count lymphocytes. ABAD DR: Paul TID: [id number]
[2021-02-24 15:25] VITALS: BP 120/71
[2021-02-24] MEDS: HYDROcodone/APAP 5/325MG 1 TAB TABLET PO PRN (16:17)
[2021-02-24 20:01] VITALS: BP 117/70
[2021-02-24] MEDS: LACTOBACILLUS RHAMNOSUS GG 1 CAPSULE. PO SCH (20:54)
[2021-02-24] MEDS: AMOXICILLIN/K CLAV 875/125MG TABLET. PO SCH (20:54)
[2021-02-24] MEDS: LATANOPROST OU SCH (21:00)
[2021-02-24] MEDS: [UNRECOGNIZED DRUG - OTHER] OU SCH (21:00)
[2021-02-24] MEDS: NETARSUDIL MESYLAT OU SCH (21:00)
--- NOTE | 2021-02-24 23:56 | PN ---
DATE: 02/24/2021 SUBJECTIVE: The patient is resting, slightly propped up in bed, sleeping comfortably. He is arousable. On questioning him, he did complain of pain in his right foot. Apparently, he is extremely weak and his appetite is poor. PHYSICAL EXAMINATION: GENERAL: When I examined him today, he looked pale, but no jaundice, cyanosis. No lymphadenopathy, no thyromegaly, no jugular venous distention. No lower limb edema. VITAL SIGNS: His heart rate was 76, blood pressure is 127/73, temperature was 97.9, respiratory rate was 17 and oxygen saturation was 100% on room air. HEAD, EYES, EARS, NOSE, AND THROAT: Normocephalic, atraumatic. NECK: Supple. HEART: Normal first and second heart sounds. No gallop, rub or murmur. CHEST: Clear to auscultation. No crepitation or rhonchi. ABDOMEN: Soft, nontender. NEUROLOGIC: He is sleepy, but arousable. Opens eyes and responds appropriately. All cranial nerves intact. He moves all extremities and according to him he is able to walk. His intake and output incompletely recorded. LABORATORY DATA: His lab work showed a white cell count 5900, hemoglobin 7.5, hematocrit 22, MCV 96 and platelet count of 68,000. His chemistry showed a serum sodium of 140, potassium 4.3, chloride 104, bicarbonate 31, anion gap of 5, BUN 19, creatinine 1, estimated GFR was 88 mL per minute. His glucose 146, calcium was 8.8. Total bilirubin, AST, ALT, alkaline phosphatase were normal. Total protein 6.3, albumin was 2.4. ASSESSMENT: 1. This is a 75-year-old -[place] male patient who was admitted with anemia, with a hemoglobin of 6.5 and hematocrit of 19.4. Did receive 1 unit of packed RBCs and hemoglobin and hematocrit continued to be stable at 7.5 and 22. 2. He has stage III lung cancer diagnosed in August of this year. He received a total of 4 rounds of chemotherapy in October, November and December and January. 3. Has history of chronic osteomyelitis and osteosarcoma treated when he was in [place]. 4. Other medical problems include: A. Chronic obstructive pulmonary disease. B. Type 2 diabetes mellitus. C. Hypertension. D. Atrial fibrillation. E. Hypokalemia. F. Hypomagnesemia and also thrombocytopenia. PLAN: His serum potassium has improved to 4.3. We did give him 2 grams of magnesium. I will add serum magnesium to his lab work today. He has other medical problems to include marked lymphocytosis and neutropenia. I will contact his oncologist. We will also arrange for him to be seen by physical and occupational therapy. DARCY DR: Paul TID: [id number]
[2021-02-25] MEDS: ONDANSETRON ODT 4 MG TAB.RAPDIS PO SCH ×2 (05:36→13:16)
[2021-02-25 05:55] VITALS: BP 135/81
[2021-02-25] MEDS: FOLIC ACID 1 MG TABLET PO SCH (08:22)
[2021-02-25] MEDS: GABAPENTIN 400 MG CAPSULE. PO SCH ×2 (08:23→13:15)
[2021-02-25] MEDS: AMIODARONE HCL 200 MG TABLET. PO SCH (08:23)
[2021-02-25] MEDS: DOXYCYCLINE HYCLATE 100 MG TABLET PO SCH (08:23)
[2021-02-25] MEDS: metFORMIN 500 MG TABLET PO SCH (08:23)
[2021-02-25] MEDS: METOCLOPRAMIDE 10 MG TABLET PO SCH (08:23)
[2021-02-25] MEDS: PANTOPRAZOLE 40 MG TABLET. PO SCH (08:23)
[2021-02-25] MEDS: POTASSIUM CHLORIDE 20 MEQ TABLET.ER. PO SCH ×2 (08:23→13:15)
[2021-02-25] MEDS: EZETIMIBE 10 MG TABLET PO SCH (08:24)
[2021-02-25] MEDS: amLODIPine BESYLATE 10 MG TABLET PO SCH (08:24)
[2021-02-25] MEDS: ALLOPURINOL 300 MG TABLET. PO SCH (08:24)
[2021-02-25] MEDS: LACTOBACILLUS RHAMNOSUS GG 1 CAPSULE. PO SCH (08:24)
[2021-02-25] MEDS: AMOXICILLIN/K CLAV 875/125MG TABLET. PO SCH (08:24)
[2021-02-25] MEDS: DEXAMETHASONE 4 MG TABLET PO SCH (08:25)
[2021-02-25] MEDS: DORZOLAMIDE/TIMOLOL 2%/0.5% OPHTH SOLUTION 10ML BOTTLE. OU SCH (08:25)
[2021-02-25] MEDS: EMPAGLIFLOZIN 10 MG TABLET. PO SCH (08:25)
[2021-02-25] MEDS: MAGNESIUM OXIDE 400 MG TABLET PO SCH ×2 (08:26→13:15)
[2021-02-25] MEDS: ATORVASTATIN CALCIUM 20 MG TABLET PO SCH (08:26)
[2021-02-25] MEDS ORDERED: APIXABAN 5 MG TABLET. PO SCH (09:00)
[2021-02-25 11:20] VITALS: BP 126/68
[2021-02-25 13:20] LABS: HEMATOCRIT 23.6 % (39.0-53.0); HEMOGLOBIN 7.8 g/dL (13.0-17.5); RED BLOOD COUNT 2.4 x10^6/uL (4.30-5.70); RED CELL DISTRIBUTION WIDTH 19.5 % (11.5-14.5); WHITE BLOOD COUNT 8.3 x10^3/uL (4.0-11.0)
[2021-02-25 13:21] LABS: CALCIUM 9.1 mg/dL (8.5-10.1); CREATININE 1.3 mg/dL (0.7-1.3); GFR 65.1
[2021-02-25] MEDS ORDERED: AMOX1TAB61 PO (13:27)
[2021-02-25 13:28] LABS: ALBUMIN 2.6 g/dL (3.4-5.0); ALBUMIN/GLOBULIN RATIO 0.6 (1.0-1.7); MAGNESIUM 1.5 mg/dL (1.8-2.4); TOTAL BILIRUBIN 0.3 mg/dL (0.2-1.0); TOTAL PROTEIN 6.7 g/dL (6.4-8.2)
--- NOTE | 2021-02-25 13:29 | DISCH ---
HOME HEALTH DISCHARGE/MEDS DISCHARGE INFORMATION: Discharge Date: Feb 25, 2021 Final Diagnosis: Problems Medical Problems: (1) Anemia Status: Acute (2) Chronic osteomyelitis Status: Acute Condition on Discharge: Stable CODE STATUS: Code Status: Full HOME HEALTH: Face to Face: I certify this patient is under my care and that I, or a nurse practitioner or physician's teachers' assistant working with me, had a face to face encounter that meets the physician face to face encounter requirements with this patient on Medical Condition(s): Other Mcfp For: Admin/Educate Injections Physical Therapy For: Evalulation/Treatment Occupational Therapy For: Evaluation/Treatment Speech Language Pathology For: Evaluation/Treatment Homebound Status Met By: Unsteady balance w/ amb, POST DISCHARGE ORDERS: Activity Instructions for Disc: Resume previous activity DIET AFTER DISCHARGE: Regular CERTIFICATION STATEMENT: Certification Statement: Based on the above finding, I certify that this patient is confined to the home and needs intermittent long term care, physical therapy and/or speech therapy, or continues to need occupational therapy.~ This patient is under my care, and I have initiated the establishment of the plan of care.~ This patient will be followed by myself or a community physician who will periodically review the plan of care. DISCHARGE MEDICATIONS: Home Meds Active Scripts Amoxicillin/Potassium Clav (AUGMENTIN 875-125 TABLET) 1 Each Tablet, 1 TAB PO BID for leukopenia for 7 Days, #14 TAB 0 Refills Prov:YANIQUE BLANK MD 02/25/21 Reported Medications Netarsudil Mesylat/Latanoprost (Rocklatan 0.02%-0.005% Eye Drp) 2.5 Ml Drops, 3 ML OU HS for Home Med, DROP 02/23/21 Dorzolamide/Timolol/Pf (Dorzolamide-Timolol 2%-0.5%) 1 Each Droperette, 1 EACH OU BID for Home Med, DROP 02/23/21 Empagliflozin (Jardiance) 10 Mg Tablet, 10 MG PO DAILY for Home Med, TAB 02/23/21 Atorvastatin Calcium (LIPITOR) 80 Mg Tablet, 1 TAB PO DAILY for Home Med, #30 TAB 5 Refills 02/23/21 Pantoprazole Sodium (PANTOPRAZOLE SODIUM) 40 Mg Tablet.dr, 1 TAB PO DAILY for Home Med, #30 TAB 3 Refills 02/23/21 Ezetimibe (ZETIA) 10 Mg Tablet, 1 TAB PO DAILY for Home Med for 30 Days, #30 TAB 0 Refills 02/23/21 Gabapentin (NEURONTIN) 800 Mg Tablet, 800 MG PO TID for NEUROGENIC PAIN, TAB 02/23/21 Apixaban (ELIQUIS) 5 Mg Tablet, 5 MG PO BID for Home Meds, TAB 02/23/21 Amlodipine Besylate (AMLODIPINE BESYLATE) 10 Mg Tablet, 1 TAB PO DAILY for Home Med, #30 TAB 5 Refills 02/23/21 Prochlorperazine Maleate (PROCHLORPERAZINE MALEATE) 10 Mg Tablet, 1 TAB PO Q6HRS for N/V, #30 TAB 3 Refills 02/23/21 Dexamethasone (DEXAMETHASONE) 4 Mg Tablet, 4 MG PO BIDWMEALS for Home Meds, TAB 02/23/21 Metoclopramide Hcl (METOCLOPRAMIDE HCL) 10 Mg Tablet, 10 MG PO BIDWMEALS for Home Meds, TAB 02/23/21 Folic Acid (FOLIC ACID) 20 Mg Capsule, 2 CAP PO DAILY for Home Med for 30 Days, #60 CAP 0 Refills 02/23/21 Amiodarone Hcl (PACERONE) 200 Mg Tablet, 200 MG PO DAILY for Home Med, TAB 02/23/21 Amiodarone Hcl (PACERONE) 200 Mg Tablet, 200 MG PO DAILY for Home Med, TAB 02/23/21 Metformin Hcl (METFORMIN HCL) 500 Mg Tablet, 1 TAB PO BID for Home Med, #60 TAB 3 Refills 02/23/21 Doxycycline Monohydrate (DOXYCYCLINE MONOHYDRATE) 100 Mg Capsule, 1 CAP PO BID for Home Med, #28 CAP 02/23/21 Allopurinol (ALLOPURINOL) 300 Mg Tablet, 1 TAB PO DAILY for Home Med, #30 TAB 5 Refills 02/23/21 Ondansetron Hcl (ZOFRAN) 4 Mg Tablet, 2 TAB PO Q8HRS for N/V, #30 TAB 02/23/21 Hydrocodone Bit/Acetaminophen (HYDROCODONE-APAP 5-325 ) 1 Each Tablet, 1 TAB PO PRN Q4HRS PRN for PAIN, TAB 0 Refills 02/23/21 YANIQUE BLANK MD Feb 25, 2021 13:29
[2021-02-25] MEDS: HYDROcodone/APAP 5/325MG 1 TAB TABLET PO PRN (14:36)
--- NOTE | 2021-02-25 22:50 | DS ---
DATE OF DISCHARGE: 02/25/2021 HOSPITAL COURSE: The patient is a 75-year-old -[place] male patient who was admitted with generalized weakness and was found to be anemic for which he received 1 unit of packed RBCs. He was also found to have neutropenia and I spoke with his oncologist and apparently all this is a manifestation of his chemotherapy. He has also had thrombocytopenia that has resolved. PHYSICAL EXAMINATION: GENERAL: When I saw him today, he was definitely more awake, alert, responding appropriately. When I examined him, he was pale, but not jaundiced, cyanosed or no thyromegaly. No jugular venous distention. No limb edema. VITAL SIGNS: His heart rate was 72, blood pressure was 126/68, temperature was 97.6, respiratory rate was 18 and oxygen saturation was 93% on room air. HEAD, EYES, EARS, NOSE AND THROAT: Normocephalic, atraumatic. NECK: Supple. HEART: Showed normal first and second heart sounds, no gallop, rub or murmur. CHEST: Clear to auscultation, no crepitation or rhonchi. ABDOMEN: Distended, soft, nontender. NEUROLOGIC: He is definitely more awake, alert, responding appropriately. All cranial nerves intact. EXTREMITIES: He moves his extremities without difficulty with generalized weakness and debility. His right lower extremity is definitely more darkly hyperpigmented, has wounds on the outer aspect of the right leg with underlying chronic osteomyelitis for which he is on chronic suppressive therapy in the form of doxycycline. LABORATORY DATA: This morning showed a white cell count of 8300, hemoglobin 7.8, hematocrit 24, MCV 98 and platelet count of 121,000. His chemistry showed a serum sodium of 141, potassium 5, chloride 104, bicarbonate 31, anion gap of 6, BUN 20, creatinine 1.3. Estimated GFR was 65 mL per minute. His glucose 116, calcium was 9.1. DISCHARGE MEDICATIONS: The patient was discharged home with home health to continue on Augmentin 875 mg twice a day for 7 days. Allopurinol 300 mg once a day, amiodarone 200 mg once a day, amlodipine 10 mg once a day, apixaban 5 mg twice a day, atorvastatin calcium 80 mg at bedtime, dexamethasone 4 mg twice a day, dorzolamide timolol one drop to both eyes twice a day, doxycycline monohydrate 100 mg twice a day, Jardiance 10 mg daily, Zetia 10 mg once a day, folic acid 20 mg once a day, Neurontin 800 mg 3 times a day, hydrocodone/APAP one tablet every 4 hours, metformin 500 mg twice a day, metoclopramide 10 mg b.i.d. with meals, netarsudil mesylate/latanoprost one drop to both eyes at bedtime, ondansetron 8 mg twice a day, Protonix 40 mg once a day and prochlorperazine maleate 10 mg every 6 hours for nausea and vomiting. FINAL DISCHARGE DIAGNOSES: 1. Anemia with hemoglobin 6.5, hematocrit 19.7 for which he received 1 unit of packed RBCs and hemoglobin and hematocrit stabilized at 7.8 and 24. 2. Stage III lung cancer diagnosed in August 2020. He received a total of 4 rounds of chemotherapy in October, November and January. 3. He developed severe leukopenia, for which I did start him on Augmentin 875 mg twice a day for 7 days as per his oncologist's recommendation. 4. He has chronic osteomyelitis on suppressive treatment with doxycycline. 5. Other medical problems include: A. Chronic obstructive pulmonary disease. B. Type 2 diabetes mellitus. C. Hypertension. D. Atrial fibrillation. E. Hypokalemia, resolved. F. Hypomagnesemia, resolved. G. Thrombocytopenia, resolved. 6. The patient has chronic lymphatic leukemia. SAYRA DR: Paul TID: [id number]
== END 2021-02-25 16:16 | disposition home health service (06) | DRG 808 ==
LOC: ER 16:22 → 1 SOUTH 20:16
PROVIDERS: ADMIT Hospitalist; ATTEND Hospitalist
PROC: 30233N1 Transfusion of Nonautologous Red Blood Cells into Peripheral Vein, Percutaneous Approach (ICD-10-PCS; principal; 2021-02-22)
DX: D61.810 Antineoplastic chemotherapy induced pancytopenia (principal); E43 Unspecified severe protein-calorie malnutrition; C91.10 Chronic lymphocytic leukemia of B-cell type not having achieved remission; M86.60 Other chronic osteomyelitis, unspecified site; D64.81 Anemia due to antineoplastic chemotherapy; E87.6 Hypokalemia; D69.6 Thrombocytopenia, unspecified; D70.9 Neutropenia, unspecified; E11.69 Type 2 diabetes mellitus with other specified complication; T45.1X5A Adverse effect of antineoplastic and immunosuppressive drugs, initial encounter; E78.5 Hyperlipidemia, unspecified; E83.42 Hypomagnesemia; I10 Essential (primary) hypertension; I48.91 Unspecified atrial fibrillation; J44.9 Chronic obstructive pulmonary disease, unspecified; Z85.118 Personal history of other malignant neoplasm of bronchus and lung; Z85.830 Personal history of malignant neoplasm of bone; Z87.891 Personal history of nicotine dependence; Z92.21 Personal history of antineoplastic chemotherapy; Z68.20 Body mass index [BMI] 20.0-20.9, adult
CPT/HCPCS: 36415; 36430; 71046; 73590; 80048; 80053; 81001; 82947; 83605; 83735; 83880; 84484; 85007; 85014; 85018; 85025; 85027; 85610; 85651; 86140; 86850; 86900; 86901; 86920; 87040; 93005; J3475; J8540; P9016; Q0162; 99285-25

== ENCOUNTER 2021-05-09 15:51 | Emergency (ER) | payer OTHER ==
[~2021-05-09] VITALS: Ht 182.9 cm; Wt 68.6 kg
[~2021-05-09 15:51] MED LIST: ALLO300T PO; AMIO200T7 PO; AMLO-187 PO; AMOX1TAB61 PO; APIX5TAB3 PO; DEXA4TAB PO; DORZ1DRO7 OU; DOXY-181 PO; EMPA10TA PO; EZET10TA20 PO; FOLI20CA PO; GABA800T PO; HYDR-2155 PO; LIPITOR80 MG PO; METF500T16 PO; METO10TA PO; NETA2.5D3 OU; ONDA4TAB7 PO; PANT40TA6 PO; PROC10TA2 PO
[2021-05-09 16:08] VITALS: BP 134/79
--- NOTE | 2021-05-09 16:08 | PHYS DOC ---
Past History Past Medical History: Diabetes, Hypertension, Renal Disease, Other Additional Past Medical Histor: osteomyelitis,osteosarcoma, AFIB, STAGE 3 LUNG CA, CLL (KIRTI SOLANO APRN) Past Surgical History: Other Additional Past Surgical Histo: Left lobectomy (KIRTI SOLANO APRN) Alcohol Use: None (KIRTI SOLANO APRN) General Adult EDM: Chief Complaint: RIB PAIN HPI: HPI: Patient is a 75-year-old male being seen in the ER for left-sided rib pain. Patient reports that the pain started 2 days after he hit his left ribs on his bed. Patient denies falling or hitting his head. He denies abdominal pain, nausea, vomiting, diarrhea, fevers, dysuria, sick exposures, chest pain, shortness of breath, recent travel. (KIRTI SOLANO APRN) Review of Systems: Review of Systems: 14 body systems of the review of systems have been reviewed. See HPI for pertinent positive and negative responses, otherwise all other systems are negative, nonpertinent or noncontributory (KIRTI SOLANO APRN) Allergies: Allergies: Allergies Coded Allergies Type Severity Reaction Last Updated Verified No Known Drug Allergies 08/06/20 No (KIRTI SOLANO APRN) Physical Exam: PE: Constitutional: Well developed, well nourished, no acute distress, non-toxic appearance. [] HENT: Normocephalic, atraumatic, bilateral external ears normal, oropharynx moist, no oral exudates, nose normal. [] Eyes: PERRL, EOMI, conjunctiva normal, no discharge. [] Neck: Normal range of motion, no stridor Cardiovascular:Heart rate regular rhythm, no murmur [] Lungs & Thorax: Bilateral breath sounds clear to auscultation, no flail chest, no crepitus, pain with palpation to left lateral ribs, no wounds [] Abdomen: Bowel sounds normal, soft, no tenderness, no masses, no pulsatile masses. [] Skin: Warm, dry, no erythema, no rash. [] Back: No tenderness, normal range of motion Extremities: No tenderness, no cyanosis, no clubbing, ROM intact, no edema. [] Neurologic: Alert and oriented X 3, normal motor function, normal sensory function, no focal deficits noted. [] Psychologic: Affect normal, judgement normal, mood normal. [] (KIRTI SOLANO APRN) EKG: EKG: [] (KIRTI SOLANO APRN) Radiology/Procedures: Radiology/Procedures: []PROCEDURE: RIBS LEFT AND PA CHEST 2 view left rib detail series with PA view chest x-ray Clinical indications: Hit left rib on bed. Pain. FINDINGS: No acute left rib fracture is evident.. No acute lung infiltrate or pleural effusion or pulmonary edema or pneumothorax is seen. Nipple shadow projects over the right lung base. Heart size and mediastinum are stable from February 22, 2021 chest x-ray. IMPRESSION: No acute left rib fracture. Electronically signed by: Silvana Gutierres MD (05/09/2021 4:33 PM) [id number] DICTATED AND SIGNED BY: SILVANA GUTIERRES MD DATE: 05/09/21 1630 CC: KIRTI SOLANO APRN; ABY RAIN MD ~MTH0 0 (KIRTI SOLANO APRN) Heart Score: C/O Chest Pain: No Risk Factors: Risk Factors: DM, Current or recent (<one month) smoker, HTN, HLP, family history of CAD, obesity. Risk Scores: Score 0 - 3: 2.5% MACE over next 6 weeks - Discharge Home Score 4 - 6: 20.3% MACE over next 6 weeks - Admit for Clinical Observation Score 7 - 10: 72.7% MACE over next 6 weeks - Early Invasive Strategies (KIRTI SOLANO APRN) Course & Med Decision Making: Course & Med Decision Making Pertinent Labs and Imaging studies reviewed. (See chart for details) [] Patient is a 75-year-old male who presents emergency department for left- sided rib pain after he hit his ribs on his bed frame approximately a week ago. Work-up in the ER consisted of a rib and chest x-ray. This showed no acute fracture or any other abnormality. Patient advised to take anti-inflammatory medications and follow-up with his primary care provider. I discussed with patient all findings and diagnostic testing as well as the need to follow-up with PCP for further evaluation and treatment or return to the ER if any new or worsening symptoms. Strict return precautions were also discussed at length. Patient voiced understanding and agreement with the plan. Patient is hemodynamically stable at the time of disposition. (KIRTI SOLANO APRN) Course & Med Decision Making I was the Attending physician on the above date of service of this patient. This patient was evaluated, examined, treated, and dispositioned from the emergency department by the mid-level practitioner. Although I was working at the time , no assistance was requested. Electronically signed, Federico Aj DO (FEDERICO AJ DO) Deandra Disclaimer: Deandra Disclaimer: This electronic medical record was generated, in whole or in part, using a voice recognition dictation system. (KIRTI SOLANO APRN) Departure Departure: Impression: Primary Impression: Rib contusion Qualified Codes: S20.212A - Contusion of left front wall of thorax, initial encounter Disposition: HOME / SELF CARE / HOMELESS Condition: GOOD Referrals: ABY RAIN MD (PCP) Patient Instructions: Rib Contusion Additional Instructions: You were seen in the emergency department for left-sided rib pain after hitting it on your bed frame. X-ray was performed that showed no acute fracture or abnormality. Please continue to take Tylenol and/or ibuprofen for your pain. You can also apply a heating pad. Follow-up with your primary care provider tomorrow regarding your ER visit. Return to the emergency department if you develop worsening of your pain, abdominal pain, high fevers refractory to treatment, intractable nausea or vomiting, chest pain, shortness of breath or any new or worsening concerns. EMERGENCY DEPARTMENT GENERAL DISCHARGE INSTRUCTIONS Thank you for coming to [facility] (ED) today and trusting us with you care. We trust that you had a positivie experience in our Emergency Department. If you wish to speak to the department management, you may call the director at [phone]. YOUR FOLLOW UP INSTRUCTIONS ARE FOLLOWS: 1. Do you have a private Doctor? If you do not have a private doctor, please ask for a resource list of physicians or clinics that may be able to assist you with follow up care. 2. The Emergency Physician has interpreted your x-rays. The X-Ray specialist will also review them. If there is a change in the findings, you will be notified in 48 hours when at all possible. 3. A lab test or culture has been done, your results will be reviewed and you will be notified if you need a change in treatment. ADDITIONAL INSTRUCTIONS AND INFORMATION: 1. Your care today has been supervised by a physician who is specially trained in emergency care. Many problems require more than one evaluation for a complete diagnosis and treatment. We recommend that you schedule your follow up appointment as recommended to ensure complete treatment of you illness or injury. If you are unable to obtain follow up care and continue to have a problem, or if your condition worsens, we recommend that you return to the ED. 2. We are not able to safely determine your condition over the phone nor are we able to give sound medical advice over the phone. For these safety reasons, if you call for medical advice we will ask you to come to the ED for further evaluation. 3. If you have any questions regarding these discharge instructions please call the ED at [phone]. SAFETY INFORMATION: In the interest of safety, wellness, and injury prevention; we encourage you to wear your sealbelt, if you smoke; quite smoking, and we encourage family to use a protective helmet for bicycling and other sporting events that present an increased risk for head injury. IF YOUR SYMPTOMS WORSEN OR NEW SYMPTOMS DEVELOP, OR YOU HAVE CONCERNS ABOUT YOUR CONDITION; OR IF YOUR CONDITION WORSENS WHILE YOU ARE WAITING FOR YOUR FOLLOW UP APPOINTMENT; EITHER CONTACT YOUR PRIMARY CARE DOCTOR, THE PHYSICIAN WHOSE NAME AND NUMBER YOU WERE GIVEN, OR RETURN TO THE ED IMMEDIATELY. KIRTI SOLANO APRN May 09, 2021 16:08 FEDERICO AJ DO May 09, 2021 17:20
--- NOTE | 2021-05-09 16:36 | RAD ---
2 view left rib detail series with PA view chest x-ray Clinical indications: Hit left rib on bed. Pain. FINDINGS: No acute left rib fracture is evident.. No acute lung infiltrate or pleural effusion or pul monary edema or pneumothorax is seen. Nipple shadow projects over the right lung base. Heart size and mediastinum are stable from February 22, 2021 chest x-ray. IMPRESSION: No acute left rib fracture. Electronically signed by: Carmine Gutierres MD (05/09/2021 4:33 PM) [id number]
== END 2021-05-09 16:56 | disposition home or self-care (01) ==
LOC: ER 15:51
DX: S20.212A Contusion of left front wall of thorax, initial encounter (principal); E11.9 Type 2 diabetes mellitus without complications; I10 Essential (primary) hypertension; I48.91 Unspecified atrial fibrillation; W22.8XXA Striking against or struck by other objects, initial encounter; Y93.89 Activity, other specified; Y92.89 Other specified places as the place of occurrence of the external cause; Y99.8 Other external cause status
CPT/HCPCS: 71101; 99283

== ENCOUNTER 2021-08-04 05:22 | Emergency (ER) | payer OTHER ==
[~2021-08-04] VITALS: Ht 180.3 cm; Wt 62.0 kg
[~2021-08-04 05:22] MED LIST changes: +EPINEPHrine SYRINGE 1 MG/10 ML SYRINGE. ONE
[2021-08-04] MEDS ORDERED: KETAMINE HCL 500 MG/10 ML VIAL. ONE (05:29)
[2021-08-04] MEDS ORDERED: KETAMINE HCL IN NACL, ISO-OSM 50 MG/5 ML SYRINGE IV ONE (05:57)
[2021-08-04] MEDS ORDERED: PHENYLEPHRINE 10 MG/ML VIAL. IV ONE (06:01)
--- NOTE | 2021-08-04 06:06 | PHYS DOC ---
Past History Past Medical History: Diabetes, Hypertension, Renal Disease, Other Additional Past Medical Histor: osteomyelitis,osteosarcoma, AFIB, STAGE 3 LUNG CA, CLL Past Surgical History: No Surgical History Additional Past Surgical Histo: Left lobectomy Alcohol Use: None Adult General HPI HPI Patient is a 76-year-old male presenting via EMS for altered mental status. Patient presents from [facility], was found on the floor foaming at the mouth with unknown downtime. EMS was subsequently called and on arrival, patient GCS 3 with initial O2 sat 40% otherwise hemodynamically stable. Patient was subsequently transferred to our facility. Patient arrives with daughter who is DPOA, she discloses that patient has extensive history most pertinent for stage III lung cancer, CLL, and A. fib. She reports that patient does not want any chest compressions but after discussion with other family members, all in favor for intubation. She reports patient has been at [place] and has been at [facility] otherwise Review of Systems Review of Systems Fourteen body systems of review of systems have been reviewed. See HPI for pertinent positives and negative responses, other [place] all other systems are negative, non-pertinent or non-contributory Current Medications Current Medications Current Medications Medications (Trade) Dose Ordered Sig/Emma Start Time Stop Time Status Last Admin Dose Admin Ketamine HCl (Ketamine) 500 mg STK-MED ONCE 08/04/21 05:29 08/04/21 05:29 DC Phenylephrine HCl (Zach-Synephrine Inj) 10 mg STK-MED ONCE 08/04/21 06:01 08/04/21 06:02 DC Allergies Allergies Allergies Coded Allergies Type Severity Reaction Last Updated Verified No Known Drug Allergies 08/06/20 No Physical Exam Physical Exam Constitutional: Well developed, well nourished, no acute distress, non-toxic appearance. HENT: Normocephalic, atraumatic, bilateral external ears normal, oropharynx moist, no oral exudates, nose normal. Eyes: PERRLA, EOMI, conjunctiva normal, no discharge. Neck: Normal range of motion, no tenderness, supple, no stridor. Cardiovascular: Heart rate regular, sinus rhythm, no murmurs rubs or gallops Lungs & Thorax: Bilateral breath sounds clear to auscultation Abdomen: Bowel sounds normal, soft, no tenderness, no masses, no pulsatile masses. Nonsurgical abdomen, no peritoneal signs Skin: Warm, dry, no erythema, no rash. Back: No tenderness, no CVA tenderness. Extremities: No tenderness, no cyanosis, no clubbing, ROM intact, no edema. Neurologic: Alert and oriented X 3, grossly normal motor & sensory function, no focal deficits noted. Psychologic: Affect normal, judgement normal, mood normal. Current Patient Data Vital Signs Vital Signs Date Time Temp Pulse Resp B/P (MAP) Pulse Ox O2 Delivery O2 Flow Rate FiO2 08/04/21 05:22 97.8 102 26 129/70 (89) 87 BiPAP/CPAP Vital Signs Date Time Temp Pulse Resp B/P (MAP) Pulse Ox O2 Delivery O2 Flow Rate FiO2 08/04/21 05:57 94 Ventilator 08/04/21 05:22 97.8 102 26 129/70 (89) Lab Results Laboratory Tests Test 08/04/21 05:38 08/04/21 06:12 08/04/21 07:14 08/04/21 07:50 White Blood Count 13.3 x10^3/uL Red Blood Count 6.00 x10^6/uL Hemoglobin 17.5 g/dL Hematocrit 57.0 % Mean Corpuscular Volume 95 fL Mean Corpuscular Hemoglobin 29 pg Mean Corpuscular Hemoglobin Concent 31 g/dL Red Cell Distribution Width 17.7 % Platelet Count 185 x10^3/uL Neutrophils (%) (Auto) 22 % Lymphocytes (%) (Auto) 77 % Monocytes (%) (Auto) 1 % Eosinophils (%) (Auto) 0 % Basophils (%) (Auto) 0 % Neutrophils # (Auto) 3.0 x10^3uL Lymphocytes # (Auto) 10.2 x10^3/uL Monocytes # (Auto) 0.1 x10^3/uL Eosinophils # (Auto) 0.0 x10^3/uL Basophils # (Auto) 0.0 x10^3/uL Platelet Estimate Pending Prothrombin Time 13.3 SEC Prothromb Time International Ratio 1.3 Activated Partial Thromboplast Time 23 SEC Sodium Level 148 mmol/L Potassium Level 4.5 mmol/L Chloride Level 107 mmol/L Carbon Dioxide Level 26 mmol/L Anion Gap 15 Blood Urea Nitrogen 43 mg/dL Creatinine 2.3 mg/dL Estimated GFR (Cockcroft-Gault) 33.6 BUN/Creatinine Ratio 19 Glucose Level 149 mg/dL Calcium Level 8.9 mg/dL Magnesium Level 1.9 mg/dL Total Bilirubin 0.6 mg/dL Aspartate Amino Transf (AST/SGOT) 119 U/L Alanine Aminotransferase (ALT/SGPT) 34 U/L Alkaline Phosphatase 103 U/L Creatine Kinase 323 U/L Creatine Kinase MB (Mass) 1.4 ng/mL Creatine Kinase MB Relative Index 0.4 % Troponin I High Sensitivity 53 ng/L BK-Grd-U-Type Natriuretic Peptide 885 pg/mL Total Protein 6.4 g/dL Albumin 2.4 g/dL Albumin/Globulin Ratio 0.6 Blood Gas pH 7.33 Blood Gas PCO2 47 mmHg Blood Gas PO2 60 mmHg Blood Gas HCO3 25 mmol/L Arterial Bld O2 Saturation (Calc) 89 % FiO2 50 % Influenza Type A (Rapid) Negative Influenza Type B (Rapid) Negative SARS-CoV-2 Antigen (Rapid) Negative Lactic Acid Level 5.2 mmol/L Ammonia 10 mcmol/L Test 08/04/21 08:01 Urine Collection Type U cath Urine Color Yellow Urine Clarity Clear Urine pH 5.0 Urine Specific Wol[place] >=1.030 Urine Protein 30 mg/dl Urine Glucose (UA) Neg mg/dL Urine Ketones (Stick) Neg mg/dL Urine Blood Neg Urine Nitrite Neg Urine Bilirubin Neg Urine Urobilinogen Dipstick 0.2 mg/dL Urine Leukocyte Esterase Neg Urine RBC 3-5 /HPF Urine WBC 1-4 /HPF Urine Squamous Epithelial Cells Mod /LPF Urine Renal Epithelial Cells Few /LPF Urine Bacteria 0 /HPF Urine Hyaline Casts Occ /HPF Urine Granular Casts Occ /HPF Urine Mucus Mod /LPF Current Medications Medications (Trade) Dose Ordered Sig/Emma Route PRN Reason Start Time Stop Time Status Last Admin Dose Admin Ketamine HCl (Ketamine) 500 mg STK-MED ONCE .ROUTE 08/04/21 05:29 08/04/21 05:29 DC Phenylephrine HCl (Zach-Synephrine Inj) 10 mg STK-MED ONCE IV 08/04/21 06:01 08/04/21 06:02 DC Ceftriaxone Sodium 1 gm/ Sodium Chloride 50 ml @ 100 mls/hr 1X ONCE IV 08/04/21 07:30 08/04/21 07:59 DC 08/04/21 08:18 Azithromycin 500 mg/Sodium Chloride 250 ml @ 250 mls/hr 1X ONCE IV 08/04/21 07:45 08/04/21 08:44 DC Dexamethasone Sodium Phosphate (Decadron) 6 mg 1X ONCE IVP 08/04/21 07:30 08/04/21 07:37 DC 08/04/21 08:17 Norepinephrine Bitartrate 8 mg/ Dextrose 258 ml @ 11.997 mls/ hr CONT PRN IV SEE I/O RECORD 08/04/21 07:00 08/04/21 07:52 Ketamine HCl 100 mg/Sodium Chloride 102 ml @ 3.794 mls/ hr CONT PRN IV PER PROTOCOL 08/04/21 07:45 08/04/21 08:53 Lactated Ringer's 1,000 ml @ 1,000 mls/hr 1X ONCE IV 08/04/21 07:45 08/04/21 08:44 DC 08/04/21 05:49 Ketamine HCl (Ketamine) 150 mg 1X ONCE IV 08/04/21 05:57 08/04/21 07:50 DC 08/04/21 05:47 Sodium Chloride 1,000 ml @ 150 mls/hr 1X ONCE IV 08/04/21 07:45 08/04/21 14:24 08/04/21 07:10 Rocuronium [place] (Zemuron) 100 mg 1X ONCE IV 08/04/21 07:45 08/04/21 07:48 DC 08/04/21 05:52 Lactated Ringer's 1,000 ml @ 75 mls/hr 1X ONCE IV 08/04/21 08:15 08/04/21 21:34 08/04/21 09:00 Sodium Chloride 250 ml @ As Directed STK-MED ONCE .ROUTE 08/04/21 08:08 08/04/21 08:08 DC Sodium Chloride 50 ml @ As Directed STK-MED ONCE .ROUTE 08/04/21 08:08 08/04/21 08:09 DC Azithromycin (Zithromax) 500 mg STK-MED ONCE IV 08/04/21 08:08 08/04/21 08:09 DC Ceftriaxone Sodium (Rocephin) 1 gm STK-MED ONCE .ROUTE 08/04/21 08:08 08/04/21 08:09 DC EKG EKG EKG ordered and interpreted by myself at 0655 hrs. as sinus rhythm at 93 bpm, QTC 483 otherwise unremarkable intervals, no axis deviation, no obvious ischemic findings, no STEMI Radiology/Procedures Radiology/Procedures Single view chest dated 08/04/2021 6:07 AM: COMPARISON: 08/04/2021 Clinical Indication: Intubation. Respiratory distress.. Findings: Single upright portable exam of the chest was performed. Endotracheal tube tip approximately 5.9 cm above the level of nesha. There is consolidation at the left lung base with blunting of the left costophrenic sulcus. There is patchy perihilar airspace disease on the right, new from prior study. Soft tissue fullness at the suprahilar region near the aortic knob appears increased from prior study. There is apical pleural thickening, increased. IMPRESSION: 1. Right perihilar airspace disease with left basilar consolidation, new from prior study. Findings suspicious for pneumonia. 2. Increasing soft tissue consolidation at the suprahilar region on the left, possibly related known malignancy. There is increasing pleural effusion/pleural thickening on the left and metastatic pleural disease is not excluded. 3. Endotracheal tube tip at mid trachea. Electronically signed by: Paul Rodriguez MD (08/04/2021 6:11 AM) [facility] ///////////////////// CT HEAD AND C-SPINE WO History: Reason: altered mental status, H/O LEFT LOBECTOMY / Spl. Instructions: / History: Comparison: August 06, 2020 Technique: Noncontrast CT imaging was performed of the head and cervical spine. Coronal and sagittal reconstructions were performed. Exposure: One or more of the following individualized dose reduction techniques were utilized for this examination: 1. Automated exposure control 2. Adjustment of the mA and/or kV according to patient size 3. Use of iterative reconstruction technique. Findings: Head CT: No intracranial hemorrhage. No mass effect. No hydrocephalus. Right lateral scalp soft tissue swelling. Mild brain parenchymal volume loss. Severe foci of decreased attenuation within the hemispheric white matter, most often due to chronic microvascular ischemia. Intracranial atheromatous calcifications. Chronic right basal ganglia lacunar infarcts. Chronic left thalamic lacunar infarct. Imaged orbits are unremarkable. Minimal fluid within the left maxillary sinus. Mastoid air cells are clear. No acute calvarial fracture. Fluid within the posterior nasopharynx and hypopharynx related to oral intubation. Cervical spine CT: Straightening of the cervical spine. No acute fracture. Mild T1 superior endplate compression deformity, unchanged. Moderate degenerative disc changes most prominent C4-C5, C5-C6 and C6-C7. Mild canal narrowing. Multilevel neuroforaminal narrowing. Opacification of the left lung apex multifocal carious dentition with periodontal disease. Impression: Head CT: 1. No acute intracranial abnormality. 2. Mild right lateral scalp soft tissue swelling. 3. Extensive sequela chronic microvascular ischemia. Cervical spine CT: 1. No acute fracture or subluxation of the cervical spine. 2. Moderate cervical spondylosis. 3. Opacification of the left lung apex, may relate to pleural effusion an/or consolidation. Electronically signed by: Edwin Valdez DO (08/04/2021 9:22 AM) [id number] ///////////////////////////// XR CHEST 1V Clinical Indication: Reason: s/p right IJ cvl and OG placement / Spl. Instructions: / History: Comparison: CT chest abdomen and pelvis with contrast January 15, 2021. AP chest, earlier same day. Findings: Endotracheal tube tip is at the level of the aortic arch, unchanged. Enteric tube tip is in the proximal stomach. There is right IJ central line, tip near the superior atrial caval junction. There is elevation of left hemidiaphragm, unchanged. There is increased consolidation in the left upper lung. No mediastinal shift is appreciated. Left suprahilar opacity is unchanged. There is likely component of left pleural effusion. Central right lung airspace opacities are unchanged. There is no pneumothorax. No right pleural effusion. IMPRESSION: 1. Life support devices as above. 2. There is increased consolidation in the left upper lung. There is now near complete opacification of the left hemithorax. 3. Central right lung airspace opacities are unchanged, suggestive of pneumonia. Electronically signed by: Dustin Zayas MD (08/04/2021 10:59 AM) [id number] Heart Score C/O Chest Pain: No HEART Score for Chest Pain: HEART Score for Chest Pain Response (Comments) Value History Moderately Suspicious 1 ECG Nonspecific Repolarizatio 1 Age > 65 2 Risk Factors >3 Risk Factors or Hx CAD 2 Troponin < Normal Limit 0 Total 6 Risk Factors: Risk Factors: DM, Current or recent (<one month) smoker, HTN, HLP, family history of CAD, obesity. Risk Scores: Risk Factors: DM, Current or recent (<one month) smoker, HTN, HLP, family history of CAD, obesity. Course & Med Decision Making Course & Med Decision Making Patient initially evaluated by PM physician. It was reported that patient's airway was not patent, breathing labored, IV access and vitals obtained concerning for marked hypoxia on room air, tachypnea and hypotension Patient's daughter who is DPOA was present on patient arrival, she reiterates that patient is DNR status but wishes for him to be intubated. Patient subsequently intubated without issues Remaining history, physical exam and comprehensive ER work-up obtained concerning for respiratory failure due to pneumonia and BOGDAN in a high risk patient with lung cancer with metastasis IV antibiotics, steroids, gentle IV fluid rehydration, and Protonix administered Goals of care discussed with DPOA, she wants aggressive medical treatment but does not want any chest compressions or further aggressive measures. Given critical nature of patient and need for numerous medications, she consented to central venous line that was placed without issue I disclosed entirety of ER findings with daughter/DPOA with good understanding. Despite patient receiving all medical care at [facility] she wishes patient to be transferred to closest hospital for transportation purposes, [facility] was contacted and patient accepted Patient remains in critical condition with poor prognosis that I communicated with daughter/DPOA, she is aware. She is speaking with family about plan of care going forward but requests specialist consultation with pulmonology etc. before making final decision Critical Care Time This patient required critical care. Due to the fact that the patient required a significant amount of one on one physician - patient contact time, ordering and review of studies, arranging urgent treatment with development of a management plan, evaluation of patients response to treatment with frequent reassessments, and discussions with other providers this patient required 60 minutes of critical care time. Critical care time was indicated due to the inherent instability and/or potential for instability in this patient. The critical care time that is allocated to this patient is above and beyond any time spent on any other billable procedures performed on this patient. Dragon Disclaimer Dragon Disclaimer This electronic medical record was generated, in whole or in part, using a voice recognition dictation system. Central Line Central Line : Central Line Lumen: triple Central Line Procedure: betadine prep, sterile drapes applied, sterile dressing applied Central Line Postion: internal jugular (R) Complications: none Central Line Post Position: sutured, good blood return, position confirmed w/ CXR Progress Indication: Emergency vascular access for fluid and/or drug administration Consent: Obtained from daughter who is DPOA. The patient was placed in Trendelenburg and the right neck area was prepped and draped in a sterile fashion The area of interest and no anesthetized with local anesthetic The introducer needle bevel orientated inferomedially, the desired area was ente red shallowly advancing with continuous aspiration on the syringe until the target right internal jugular vein was entered with confirmation by ultrasound and there was free flow of venous blood. A Salinger technique was then utilized to place a central venous catheter over a guidewire and the catheter was secured in place in typical fashion Placement confirmed by chest x-ray Estimated blood loss: <10ml Complications: None Intubation Intubation : Intubation Method: orotracheal Tube Size (cm): 7.5 Breath Sounds after Intubation: equal Intubation Complications: no complications Post Intubation Xray: Yes Progress The patient required endotracheal intubation due to GCS 3, not a patent airway Consent was provided verbally by daughter who is DPOA The patient was given ketamine and julieta Once patient was adequately sedated and paralyzed, a glidoscope 4 blade was used to directly visualize the cords Using this direct visualization, a 7.5 endotracheal tube was then passed easily through the cords The tube was inserted at 22 centimeters at the lip There is excellent color change on end-tidal CO2 monitor. Patient was easily and adequately ventilated. There was excellent breath sounds bilaterally with no breath sounds heard over the epigastrium. The tube was secured in standard fashion. The patient tolerated procedure well with no observed nor reported complications Post intubation chest x-ray demonstrates excellent endotracheal tube placement Departure Departure: Impression: Primary Impression: Acute respiratory failure with hypoxia and hypercapnia Additional Impressions: Lung cancer, primary, with metastasis from lung to other site BOGDAN (acute kidney injury) Disposition: 02 [facility]ORT TERM [facility] ([facility]) Admitting Physician: Other (dr vines) Condition: CRITICAL Referrals: ABY RAIN MD (PCP) Problem Qualifiers FEDERICO AJ Aug 04, 2021 06:06
--- NOTE | 2021-08-04 06:13 | RAD ---
Single view chest dated 08/04/2021 6:07 AM: COMPARISON: 08/04/2021 Clinical Indication: Intubation. Respiratory distress.. Findings: Single upright portable exam of the chest was performed. Endotracheal tube tip approximately 5.9 cm a sai the level of nesha. There is consolidation at the left lung base with blunting of the left cost ophrenic sulcus. There is patchy perihilar airspace disease on the right, new from prior study. Soft tissue fullness at the suprahilar region near the aortic knob appears increased from prior study. The re is apical pleural thickening, increased. IMPRESSION: 1. Right perihilar airspace disease with left basilar consolidation, new from prior study. Findings s uspicious for pneumonia. 2. Increasing soft tissue consolidation at the suprahilar region on the left, possibly related known malignancy. There is increasing pleural effusion/pleural thickening on the left and metastatic pleura l disease is not excluded. 3. Endotracheal tube tip at mid trachea. Electronically signed by: Paul Rodriguez MD (08/04/2021 6:11 AM) HANNAH
[2021-08-04 06:31] LABS: BGAS PH 7.33 (7.35-7.46)
[2021-08-04 06:50] LABS: MAGNESIUM 1.9 mg/dL (1.8-2.4)
[2021-08-04] MEDS ORDERED: NOREPINEPHRINE BITARTRATE 8 MG in IV DEXTROSE 5% 250 ML IV PRN (07:00)
[2021-08-04 07:01] LABS: BASO % 0 % (0-3); EOS % 0 % (0-3); HEMOGLOBIN 17.5 g/dL (13.0-17.5); LYMPH # 10.2 x10^3/uL (1.0-4.8); LYMPH % 77 % (24-48); MEAN CORPUSCULAR HEMOGLOBIN 29 pg (25-35); MEAN CORPUSCULAR HGB CONC 31 g/dL (31-37); MEAN CORPUSCULAR VOLUME 95 fL (79-100); MONO # 0.1 x10^3/uL (0.0-1.1); MONO % 1 % (0-9); NEUT % 22 % (31-73); PLATELET COUNT 185 x10^3/uL (140-400); RED CELL DISTRIBUTION WIDTH 17.7 % (11.5-14.5); WHITE BLOOD COUNT 13.3 x10^3/uL (4.0-11.0)
[2021-08-04] MEDS ORDERED: DEXAMETHASONE SOD PHOS 4 MG/ML VIAL. IVP ONE (07:30)
[2021-08-04 07:45] LABS: CALCIUM 8.9 mg/dL (8.5-10.1); CREATININE 2.3 mg/dL (0.7-1.3); GFR 33.6; POTASSIUM 4.5 mmol/L (3.5-5.1)
[2021-08-04] MEDS ORDERED: AZITHROMYCIN 500 MG in IV NORMAL SALINE 250ML 250 ML IV ONE (07:45)
[2021-08-04] MEDS ORDERED: NORMAL SALINE IV PRN (07:45)
[2021-08-04] MEDS ORDERED: KETAMINE HCL IV PRN (07:45)
[2021-08-04] MEDS ORDERED: IV NORMAL SALINE 1,000ML 1,000 ML IV ONE (07:45)
[2021-08-04] MEDS ORDERED: ROCURONIUM 50 MG/5 ML VIAL. IV ONE (07:45)
[2021-08-04] MEDS ORDERED: IV RINGERS SOLUTION,LACTATED 1,000 ML IV ONE ×2 (07:45→08:15)
[2021-08-04 07:56] LABS: ALBUMIN 2.4 g/dL (3.4-5.0); ALBUMIN/GLOBULIN RATIO 0.6 (1.0-1.7); TOTAL BILIRUBIN 0.6 mg/dL (0.2-1.0); TOTAL PROTEIN 6.4 g/dL (6.4-8.2)
[2021-08-04 07:57] LABS: INFLUENZA A PATIENT NEGATIVE (NEGATIVE); INFLUENZA B PATIENT NEGATIVE (NEGATIVE)
[2021-08-04] MEDS ORDERED: cefTRIAXone SODIUM 1 GM VIAL ONE (08:08)
[2021-08-04] MEDS ORDERED: IV NORMAL SALINE 50ML 50 ML ONE (08:08)
[2021-08-04] MEDS ORDERED: IV NORMAL SALINE 250ML 250 ML ONE (08:08)
[2021-08-04] MEDS ORDERED: AZITHROMYCIN 500 MG VIAL. IV ONE (08:08)
[2021-08-04 08:46] LABS: CLARITY,URINE CLEAR; COLOR,URINE YELLOW
[2021-08-04 08:47] LABS: BACTERIA,URINE 0 /HPF (0-FEW); BILIRUBIN,URINE NEG (NEG); GLUCOSE,URINE NEG (NEG); GRANULAR CASTS,URINE OCC /HPF; HYALINE CASTS, URINE OCC /HPF; NITRITE,URINE NEG (NEG); UROBILINOGEN,URINE 0.2 mg/dL (0.2 mg/dL)
[2021-08-04 08:49] LABS: SQUAMOUS EPITHELIAL CELL,UR MOD /LPF
--- NOTE | 2021-08-04 08:54 | EKG ---
[address] [address] Test Date: 2021-08-04 Test Time: 06:49:56 Pat Name: DEBI LÓPEZ Department: Room: Gender: M Steward/Stewardess Room: : 1945 Requested By: FEDERICO AJ Order Number: [id number] Reading MD: Mateo Larsen MD Measurements Intervals [place] Rate: 93 P: 51 [place]: 160 QRS: 6 QRSD: 92 T: 13 QT: 386 QTc: 483 Interpretive Statements SINUS RHYTHM CONSIDER ANTEROLATERAL ISCHEMIA OR INJURY Electronically Signed On 08-04-2021 9:08:57 SANDWICH HAND by Mateo Larsen MD
--- NOTE | 2021-08-04 09:24 | RAD ---
CT HEAD AND C-SPINE WO History: Reason: altered mental status, H/O LEFT LOBECTOMY / Spl. Instructions: / History: Comparison: August 06, 2020 Technique: Noncontrast CT imaging was performed of the head and cervical spine. Coronal and sagittal reconstructions were performed. Exposure: One or more of the following individualized dose reduction techniques were utilized for thi s examination: 1. Automated exposure control 2. Adjustment of the mA and/or kV according to patient size 3. Use of iterative reconstruction technique. Findings: Head CT: No intracranial hemorrhage. No mass effect. No hydrocephalus. Right lateral scalp soft tissue swelling. Mild brain parenchymal volume loss. Severe foci of decreased attenuation within the hemispheric white matter, most often due to chronic microvascular ischemia. Intracranial atheromatous calcifications. Chronic right basal ganglia lacunar infarcts. Chronic left thalamic lacunar infarct. Imaged orbits are unremarkable. Minimal fluid within the left maxillary sinus. Mastoid air cells are clear. No acute calvarial fracture. Fluid within the posterior nasopharynx and hypopharynx related to oral intubation. Cervical spine CT: Straightening of the cervical spine. No acute fracture. Mild T1 superior endplate compression deformi ty, unchanged. Moderate degenerative disc changes most prominent C4-C5, C5-C6 and C6-C7. Mild canal narrowing. Multi level neuroforaminal narrowing. Opacification of the left lung apex multifocal carious dentition with periodontal disease. Impression: Head CT: 1. No acute intracranial abnormality. 2. Mild right lateral scalp soft tissue swelling. 3. Extensive sequela chronic microvascular ischemia. Cervical spine CT: 1. No acute fracture or subluxation of the cervical spine. 2. Moderate cervical spondylosis. 3. Opacification of the left lung apex, may relate to pleural effusion an/or consolidation. Electronically signed by: Edwin Valdez DO (08/04/2021 9:22 AM) [id number]
[2021-08-04] MEDS ORDERED: PANTOPRAZOLE IV 40 MG VIAL. IVP ONE (09:45)
[2021-08-04 11:00] VITALS: BP 117/74
--- NOTE | 2021-08-04 11:01 | RAD ---
XR CHEST 1V Clinical Indication: Reason: s/p right IJ cvl and OG placement / Spl. Instructions: / History: Comparison: CT chest abdomen and pelvis with contrast January 15, 2021. AP chest, earlier same day. Findings: Endotracheal tube tip is at the level of the aortic arch, unchanged. Enteric tube tip is in the proxi mal stomach. There is right IJ central line, tip near the superior atrial caval junction. There is elevation of left hemidiaphragm, unchanged. There is increased consolidation in the left upp er lung. No mediastinal shift is appreciated. Left suprahilar opacity is unchanged. There is likely c omponent of left pleural effusion. Central right lung airspace opacities are unchanged. There is no p neumothorax. No right pleural effusion. IMPRESSION: 1. Life support devices as above. 2. There is increased consolidation in the left upper lung. There is now near complete opacification of the left hemithorax. 3. Central right lung airspace opacities are unchanged, suggestive of pneumonia. Electronically signed by: Dustin Zayas MD (08/04/2021 10:59 AM) [id number]
[2021-08-04] MEDS ORDERED: MIDAZOLAM HCL PF 5 MG/5 ML VIAL. ONE (11:39)
[2021-08-04] MEDS ORDERED: MIDAZOLAM HCL PF 5 MG/5 ML VIAL. IV ONE (12:15)
[2021-08-04 19:15] LABS: % BANDS 4 % (0-9); % LYMPHS 75 % (24-48); % SEGS 21 % (35-66); PLT ESTIMATE ADEQUATE (ADEQUATE); SMUDGE CELLS PRESENT
== END 2021-08-04 11:50 | disposition short-term general hospital (02) ==
LOC: ER 05:22
DX: J96.01 Acute respiratory failure with hypoxia (principal); J96.02 Acute respiratory failure with hypercapnia; C34.90 Malignant neoplasm of unspecified part of unspecified bronchus or lung; N17.9 Acute kidney failure, unspecified; E11.9 Type 2 diabetes mellitus without complications; I10 Essential (primary) hypertension; I48.91 Unspecified atrial fibrillation; Z20.822 Contact with and (suspected) exposure to COVID-19
CPT/HCPCS: 31500; 36415; 36556; 36600; 51702; 70450; 71045; 72125; 80053; 81001; 82140; 82553; 82803; 83605; 83735; 83880; 84484; 85007; 85025; 85610; 85730; 87040; 87428; 93005; 96361; 96365; 96366; 96367; 96375; 99291; C9113; C9803; J0171; J0456; J0696; J1100; J2250; J7030; J7050; J7120; U0003; 94002